=== PATIENT | male | born 1935 | race Asian ===

== ENCOUNTER → 2017-04-27 | Outpatient (CLI) | payer OTHER, MEDICARE ==
--- NOTE | 2017-04-27 13:44 | RADIOLOGY REPORT (SQ) ---
EXAM DESCRIPTION: ANKLE LEFT AP/LATERAL COMPLETED DATE/TIME: 04/27/2017 12:16 pm REASON FOR STUDY: Pain in left ankle and joints of left foot COMPARISON: 12/25/2015. NUMBER OF VIEWS: Three views. TECHNIQUE: AP, lateral, and oblique radiographic images acquired of the left ankle. LIMITATIONS: None. FINDINGS: MINERALIZATION: Normal. BONES: Plantar calcaneal bone spur. Soft tissue swelling over left lateral malleolus. . JOINTS: No effusion. SOFT TISSUES: No soft tissue swelling. No foreign body. OTHER: No other significant finding. IMPRESSION: Soft tissue swelling with ankle effusion. Plantar calcaneal bone spur. TECHNICAL DOCUMENTATION: JOB ID: [id number] [email or web address]- All Rights Reserved
== END ==
LOC: OD 11:53
PROVIDERS: ATTEND Internal Medicine
DX: M25.572 Pain in left ankle and joints of left foot (principal)

== ENCOUNTER 2017-10-17 09:45 | Observation (INO) | payer OTHER, MEDICARE ==
[2017-10-17 11:10] LABS: APPEARANCE,URINE CLEAR; BILIRUBIN,URINE NEGATIVE (NEGATIVE); COLOR,URINE STRAW; GLUCOSE, URINE NEGATIVE (NEGATIVE); KETONES,URINE NEGATIVE (NEGATIVE); LEUKOCYTE ESTERASE,URINE NEGATIVE (NEGATIVE); NITRITE,URINE NEGATIVE (NEGATIVE); PROTEIN,URINE NEGATIVE (NEGATIVE); URINE SPECIFIC GRAVITY 1.006; UROBILINOGEN,URINE NEGATIVE mg/dL (<2.0)
[2017-10-17 11:33] LABS: UR PRO/CREAT RATIO RESULT 0.2 mg/mg (0.0-0.2); URINE CREATININE 60.2 mg/dL (22-328); URINE PROTEIN 12.1 mg/dL (<12)
[2017-10-17 11:49] LABS: HEMATOCRIT 34.2 % (37.9-51.0); HEMOGLOBIN 11.2 g/dL (13.5-17.0); MEAN CORPUSCULAR HEMOGLOBIN 28.6 pg (27.0-33.4); MEAN CORPUSCULAR HGB CONC 32.9 g/dL (32.0-36.0); MEAN CORPUSCULAR VOLUME 87 fl (80-97); PLATELET COUNT 163 10^3/uL (150-450); RED BLOOD COUNT 3.93 10^6/uL (4.35-5.55); RED CELL DISTRIBUTION WIDTH 14.9 % (11.5-14.0); WHITE BLOOD COUNT 5.6 10^3/uL (4.0-10.5)
[2017-10-17 12:23] LABS: ALANINE AMINOTRANSFERASE 31 U/L (21-72); ALBUMIN 3.9 g/dL (3.5-5.0); ALKALINE PHOSPHATASE 50 U/L (38-126); ANION GAP 13 (5-19); ASPARTATE AMINO TRANSFERASE 28 U/L (17-59); BILIRUBIN,DIRECT 0.3 mg/dL (0.0-0.4); BILIRUBIN,TOTAL 0.5 mg/dL (0.2-1.3); BLOOD UREA NITROGEN 29 mg/dL (7-20); CALCIUM 9.1 mg/dL (8.4-10.2); CARBON DIOXIDE 25 mmol/L (22-30); CHLORIDE 103 mmol/L (98-107); GLUCOSE 120 mg/dL (75-110); POTASSIUM 4.9 mmol/L (3.6-5.0); SODIUM 140.7 mmol/L (137-145); TOTAL PROTEIN 6.9 g/dL (6.3-8.2)
[2017-10-17] MEDS: NORMAL SALINE 1000 ML 1,000 ML IV PRN ×2 (12:36→23:03)
--- NOTE | 2017-10-17 15:48 | RADIOLOGY REPORT (SQ) ---
EXAM DESCRIPTION: CHEST 2 VIEWS COMPLETED DATE/TIME: 10/17/2017 3:22 pm REASON FOR STUDY: kidney injury COMPARISON: 12/25/2015 EXAM PARAMETERS: NUMBER OF VIEWS: two views TECHNIQUE: Digital Frontal and Lateral radiographic views of the chest acquired. RADIATION DOSE: NA LIMITATIONS: none FINDINGS: LUNGS AND PLEURA: Hyperinflation of the lungs and some flattening of the diaphragms, stab le findings. Mild chronic prominence of the interstitial markings in the lungs. No acute pulmonary consolidation. No pneumothorax or pleural effusion. No opacities, masses or pneumothorax. No pleura l effusion. MEDIASTINUM AND HILAR STRUCTURES: No masses or contour abnormalities. HEART AND VASCULAR STRUCTURES: Heart normal size. No evidence for failure. BONES: The osseous structures are stable in appearance. Stable compression deformities involving se veral of the thoracic vertebrae. HARDWARE: None in the chest. OTHER: No other significant finding. IMPRESSION: 1 No significant interval changes since the prior examination dated 12/25/2015. Stable chronic changes in the lungs. No acute findings. TECHNICAL DOCUMENTATION: JOB ID: [id number] [employer]- All Rights Reserved Reading location - IP/workstation name: [email or web address]
[2017-10-17 17:20] LABS: FREE T4 (FREE THYROXINE) 1.5 ng/dL (0.78-2.19)
[2017-10-17 17:34] LABS: THYROID STIMULATING HORMONE 0.64 uIU/mL (0.47-4.68)
--- NOTE | 2017-10-17 20:48 | PDOC H&P ---
History of Present Illness Admission Date/PCP: 10/17/17 09:47 TINA QUIROS MD History of Present Illness: PARKER LYNCH is a 82 year old male, Patient was admitted directly from outpatient to the hospital for evaluation of acute kidney injury he had blood work done last Tuesday the creatinine was 1.9, The last serum creatinine was 1.2 , is admitted into the hospital for further evaluation and management Past Medical History Cardiac Medical History: Reports: Atrial Fibrillation, Hyperlipidema, Hypertension Pulmonary Medical History: Reports: Chronic Obstructive Pulmonary Disease (COPD) Neurological Medical History: Reports: Ischemic CVA Endocrine Medical History: Reports: Diabetes Mellitus Type 2 Musculoskeltal Medical History: Reports: Arthritis Hematology: Past Surgical History Past Surgical History: Reports: Vascular Surgery - Bilateral endarterectomy Social History Smoking Status: Former Smoker Number of Years Smokin Frequency of Alcohol Use: None Hx Recreational Drug Use: No Family History Family History: Hypertension, Other Parental Family History Reviewed: Yes Children Family History Reviewed: Yes Sibling(s) Family History Reviewed.: Yes Medication/Allergy Home Medications: Apixaban [Eliquis] 2.5 mg PO Q12 10/17/17 Atorvastatin Calcium [Lipitor 40 mg Tablet] 40 mg PO DAILY 10/17/17 Carvedilol [Coreg 25 mg Tablet] 25 mg PO Q12 10/17/17 Dronedarone HCl [Multaq] 400 mg PO Q12 10/17/17 Hydrochlorothiazide [Hydrodiuril 25 mg Tablet] 25 mg PO DAILY 10/17/17 Levothyroxine Sodium [Synthroid 0.075 mg Tablet] 0.075 mg PO Q6AM 10/17/17 Lisinopril [Prinivil 40 mg Tablet] 40 mg PO Q12 10/17/17 Metformin HCl [Metformin HCl ER] 750 mg PO QHS 10/17/17 Allergies/Adverse Reactions: No Known Allergies Allergy (Verified 12/17/12 08:22) Review of Systems Constitutional: ABSENT: chills, fever(s), headache(s), weight gain, weight loss Eyes: ABSENT: visual disturbances Ears: ABSENT: hearing changes Cardiovascular: ABSENT: chest pain, dyspnea on exertion, edema, orthropnea, palpitations Respiratory: ABSENT: cough, hemoptysis Gastrointestinal: ABSENT: abdominal pain, constipation, diarrhea, hematemesis, hematochezia, nausea, vomiting Genitourinary: ABSENT: dysuria, hematuria Musculoskeletal: ABSENT: joint swelling Integumentary: ABSENT: rash, wounds Neurological: ABSENT: abnormal gait, abnormal speech, confusion, dizziness, focal weakness, syncope Psychiatric: ABSENT: anxiety, depression, homidical ideation, suicidal ideation Endocrine: ABSENT: cold intolerance, heat intolerance, menstrual abnormalities, polydipsia, polyuria Hematologic/Lymphatic: ABSENT: easy bleeding, easy bruising, lymphadenopathy Physical Exam Vital Signs: Temp Pulse Resp BP Pulse Ox 98.5 F 59 L 15 143/51 H 96 10/17/17 19:10 10/17/17 19:10 10/17/17 19:10 10/17/17 19:10 10/17/17 19:10 Intake & Output 10/16/17 10/17/17 10/18/17 06:59 06:59 06:59 Intake Total 2060 Output Total 1100 Balance 960 Weight 54.5 kg General appearance: PRESENT: no acute distress Head exam: PRESENT: atraumatic, normocephalic Eye exam: PRESENT: PERRLA Ear exam: PRESENT: normal external ear exam Respiratory exam: PRESENT: clear to auscultation priscilla Cardiovascular exam: PRESENT: RRR, +S1, +S2 Vascular exam: PRESENT: normal capillary refill GI/Abdominal exam: PRESENT: normal bowel sounds, soft Rectal exam: PRESENT: deferred Neurological exam: PRESENT: alert, CN II-XII grossly intact Psychiatric exam: PRESENT: appropriate affect, normal mood Skin exam: PRESENT: dry, intact, warm Results Laboratory Results: 10/17/17 11:30 10/17/17 11:30 10/17/17 10/17/17 10/17/17 10:50 11:30 11:30 WBC 5.6 RBC 3.93 L Hgb 11.2 L Hct 34.2 L MCV 87 MCH 28.6 MCHC 32.9 RDW 14.9 H Plt Count 163 Sodium 140.7 Potassium 4.9 Chloride 103 Carbon Dioxide 25 Anion Gap 13 BUN 29 H Creatinine 2.01 H Est GFR ( Amer) 39 L Est GFR (Non-Af Amer) 32 L Glucose 120 H Calcium 9.1 Total Bilirubin 0.5 AST 28 ALT 31 Alkaline Phosphatase 50 Total Protein 6.9 Albumin 3.9 TSH Free T4 Urine Color STRAW Urine Appearance CLEAR Urine pH 6.0 Ur Specific [place] 1.006 Urine Protein NEGATIVE Urine Glucose (UA) NEGATIVE Urine Ketones NEGATIVE Urine Blood NEGATIVE Urine Nitrite NEGATIVE Ur Leukocyte Esterase NEGATIVE Urine RBC (Auto) 0 10/17/17 11:30 WBC RBC Hgb Hct MCV MCH MCHC RDW Plt Count Sodium Potassium Chloride Carbon Dioxide Anion Gap BUN Creatinine Est GFR ( Amer) Est GFR (Non-Af Amer) Glucose Calcium Total Bilirubin AST ALT Alkaline Phosphatase Total Protein Albumin TSH 0.64 Free T4 1.50 Urine Color Urine Appearance Urine pH Ur Specific [place] Urine Protein Urine Glucose (UA) Urine Ketones Urine Blood Urine Nitrite Ur Leukocyte Esterase Urine RBC (Auto) Impressions: Chest X-Ray 10/17/17 10:33 IMPRESSION: 1 No significant interval changes since the prior examination dated 12/25/2015. Stable chronic changes in the lungs. No acute findings. Assessment & Plan - Diagnosis (1) Acute kidney injury Is this a current diagnosis for this admission?: Yes Plan: The kidney ultrasound was normal, there is no hydronephrosis, the urinalysis is bland, no protein no cast. This is probably prerenal acute kidney injury. He will be treated with IV fluids will continue to monitor kidney function very closely (2) Type 2 diabetes mellitus Qualifiers: Diabetes mellitus custodial insulin use: without termite control technician use Diabetes mellitus complication status: with neurologic complications Diabetes mellitus complication detail: with polyneuropathy Qualified Code(s): E11.42 - Type 2 diabetes mellitus with diabetic polyneuropathy Is this a current diagnosis for this admission?: Yes
[2017-10-17] MEDS: APIXABAN 2.5 MG TABLET PO SCH (21:11)
[2017-10-17] MEDS: CARVEDILOL 12.5 MG TABLET PO SCH (21:11)
[2017-10-17] MEDS: ATORVASTATIN CALCIUM 40 MG TABLET PO SCH (21:12)
--- NOTE | 2017-10-17 21:13 | RADIOLOGY REPORT (SQ) ---
EXAM DESCRIPTION: U/S RETROPERITON LTD COMPLETED DATE/TIME: 10/17/2017 9:00 pm REASON FOR STUDY: acute kidney failure COMPARISON: 04/05/2014 TECHNIQUE: Dynamic and static grayscale images acquired of the kidneys and bladder and recorded on P ACS. Additional selected color Doppler and spectral images recorded. LIMITATIONS: None. FINDINGS: RIGHT KIDNEY: Normal size, 9.4 cm. Normal echogenicity. No solid or suspicious masses . No hydronephrosis. No calcifications. LEFT KIDNEY: Normal size, 9 cm. 3 cm cortical cyst Normal echogenicity. No solid or suspicious masses. No hydronephrosis. No calcifications. BLADDER: No bladder mass. Bilateral ureteral jets are seen. OTHER FINDINGS: No other significant finding. IMPRESSION: NORMAL RENAL AND BLADDER ULTRASOUND. TECHNICAL DOCUMENTATION: JOB ID: [id number] [employer]- All Rights Reserved Reading location - IP/workstation name: [email or web address]
[2017-10-17 21:38] LABS: ALANINE AMINOTRANSFERASE 37 U/L (21-72); ALKALINE PHOSPHATASE 53 U/L (38-126); ANION GAP 15 (5-19); ASPARTATE AMINO TRANSFERASE 25 U/L (17-59); BILIRUBIN,DIRECT 0.2 mg/dL (0.0-0.4); BILIRUBIN,TOTAL 0.3 mg/dL (0.2-1.3); BLOOD UREA NITROGEN 30 mg/dL (7-20); CALCIUM 8.7 mg/dL (8.4-10.2); CARBON DIOXIDE 22 mmol/L (22-30); CHLORIDE 104 mmol/L (98-107); GLUCOSE 154 mg/dL (75-110); POTASSIUM 4.6 mmol/L (3.6-5.0); SODIUM 140.5 mmol/L (137-145); TOTAL PROTEIN 6.6 g/dL (6.3-8.2)
[2017-10-17] MEDS: DRONEDARONE HYDROCHLORIDE 400 MG TABLET PO SCH (22:39)
[2017-10-18] MEDS: LEVOTHYROXINE SODIUM 0.075 MG TABLET PO SCH (06:00)
[2017-10-18] MEDS: DRONEDARONE HYDROCHLORIDE 400 MG TABLET PO SCH ×2 (09:49→22:51)
[2017-10-18] MEDS: APIXABAN 2.5 MG TABLET PO SCH ×2 (09:49→22:51)
[2017-10-18] MEDS: CARVEDILOL 12.5 MG TABLET PO SCH ×2 (09:50→22:51)
[2017-10-18 10:06] LABS: ALANINE AMINOTRANSFERASE 30 U/L (21-72); ALBUMIN 3.8 g/dL (3.5-5.0); ALKALINE PHOSPHATASE 44 U/L (38-126); ANION GAP 12 (5-19); ASPARTATE AMINO TRANSFERASE 26 U/L (17-59); BILIRUBIN,DIRECT 0.2 mg/dL (0.0-0.4); BILIRUBIN,TOTAL 0.6 mg/dL (0.2-1.3); BLOOD UREA NITROGEN 24 mg/dL (7-20); CALCIUM 9.3 mg/dL (8.4-10.2); CARBON DIOXIDE 25 mmol/L (22-30); CHLORIDE 106 mmol/L (98-107); GLUCOSE 126 mg/dL (75-110); POTASSIUM 4.7 mmol/L (3.6-5.0); SODIUM 142.5 mmol/L (137-145); TOTAL PROTEIN 6.6 g/dL (6.3-8.2)
--- NOTE | 2017-10-18 10:53 | Physician Advisory Note ---
Physician Advisor ProgressNote .: Pursuant to the plan for Flaco Bob, I have reviewed the medical record for this patient. Physician Advisor Statement: Please consider documenting, if you agree: 1. most likely cause of EJ (?the HCTZ/lisinopril?, dehydration?, or ...?) 2. Any clinical reasons pt cannot be safely d/c'd home today - "I am CONCERNED about ".... Status: approp'ly Obs to start. If attending finds pt still concerning today, there is potential for transition to Inpatient status if the severity of illness & intensity of service are high enough. Thanks! CK
[2017-10-18] MEDS: ATORVASTATIN CALCIUM 40 MG TABLET PO SCH (22:51)
[2017-10-19] MEDS: NORMAL SALINE 1000 ML 1,000 ML IV PRN ×2 (04:57→16:48)
[2017-10-19] MEDS: LEVOTHYROXINE SODIUM 0.075 MG TABLET PO SCH (04:59)
[2017-10-19] MEDS: DRONEDARONE HYDROCHLORIDE 400 MG TABLET PO SCH (09:56)
[2017-10-19] MEDS: CARVEDILOL 12.5 MG TABLET PO SCH (09:56)
[2017-10-19] MEDS: APIXABAN 2.5 MG TABLET PO SCH (09:56)
[2017-10-19] MEDS ORDERED: HYDROCHLOROTHIAZIDE 25 MG TABLET PO SCH (13:00)
[2017-10-19] MEDS ORDERED: LISINOPRIL 10 MG TABLET PO SCH (13:00)
[2017-10-19 15:22] LABS: ALANINE AMINOTRANSFERASE 36 U/L (21-72); ALBUMIN 3.4 g/dL (3.5-5.0); ALKALINE PHOSPHATASE 41 U/L (38-126); ANION GAP 14 (5-19); ASPARTATE AMINO TRANSFERASE 29 U/L (17-59); BILIRUBIN,DIRECT 0.2 mg/dL (0.0-0.4); BILIRUBIN,TOTAL 0.4 mg/dL (0.2-1.3); BLOOD UREA NITROGEN 20 mg/dL (7-20); CALCIUM 9.4 mg/dL (8.4-10.2); CARBON DIOXIDE 23 mmol/L (22-30); CHLORIDE 105 mmol/L (98-107); GLUCOSE 116 mg/dL (75-110); POTASSIUM 4.7 mmol/L (3.6-5.0); SODIUM 141.8 mmol/L (137-145); TOTAL PROTEIN 6.3 g/dL (6.3-8.2)
--- NOTE | 2017-10-19 15:47 | PDOC DISCHARGE SUMMARY ---
General - Admit/Disc Date/PCP Admission Date/Primary Care Provider: 10/17/17 09:47 TINA QUIROS MD Discharge Date: 10/19/17 - Discharge Diagnosis (1) Acute kidney injury Is this a current diagnosis for this admission?: Yes (2) Type 2 diabetes mellitus Is this a current diagnosis for this admission?: Yes - Additional Information Home Medications: Apixaban [Eliquis] 2.5 mg PO Q12 10/17/17 Atorvastatin Calcium [Lipitor 40 mg Tablet] 40 mg PO DAILY 10/17/17 Carvedilol [Coreg 25 mg Tablet] 25 mg PO Q12 10/17/17 Dronedarone HCl [Multaq] 400 mg PO Q12 10/17/17 Levothyroxine Sodium [Synthroid 0.075 mg Tablet] 0.075 mg PO Q6AM 10/17/17 Lisinopril [Prinivil 40 mg Tablet] 40 mg PO Q12 10/17/17 Metformin HCl [Metformin HCl ER] 750 mg PO QHS 10/17/17 History of Present Illness History of Present Illness: PARKER LYNCH is a 82 year old male, Patient was admitted directly from outpatient to the hospital for evaluation of acute kidney injury he had blood work done last Tuesday the creatinine was 1.9, The last serum creatinine was 1.2 , is admitted into the hospital for further evaluation and management Hospital Course Hospital Course: Patient was admitted for the management of acute kidney injury, due to prerenal dehydration, he was treated with IV fluid therapy, on admission serum creatinine was 2, the creatinine today is 1.3. Urinalysis was negative kidney ultrasound was normal. Physical Exam Vital Signs: Temp Pulse Resp BP Pulse Ox 97.8 F 59 L 17 177/61 H 94 10/19/17 11:18 10/19/17 11:18 10/19/17 11:18 10/19/17 11:18 10/19/17 11:18 Intake & Output 10/18/17 10/19/17 10/20/17 06:59 06:59 06:59 Intake Total 4120 2275 Output Total 1100 950 Balance 3020 1325 Weight 54.3 kg 54.6 kg General appearance: PRESENT: no acute distress, well-developed, well-nourished Head exam: PRESENT: atraumatic, normocephalic Eye exam: PRESENT: conjunctiva pink, EOMI, PERRLA Ear exam: PRESENT: normal external ear exam Mouth exam: PRESENT: moist, tongue midline Neck exam: PRESENT: full ROM Respiratory exam: PRESENT: clear to auscultation priscilla Cardiovascular exam: PRESENT: RRR, +S1, +S2 Pulses: PRESENT: normal dorsalis pedis pul, +2 pedal pulses bilateral Vascular exam: PRESENT: normal capillary refill GI/Abdominal exam: PRESENT: normal bowel sounds, soft Rectal exam: PRESENT: deferred Neurological exam: PRESENT: alert, awake, oriented to person, oriented to place , oriented to time, oriented to situation, CN II-XII grossly intact Psychiatric exam: PRESENT: appropriate affect, normal mood Skin exam: PRESENT: dry, intact, warm Results Laboratory Results: 10/17/17 11:30 10/19/17 14:43 10/19/17 14:43 Sodium 141.8 Potassium 4.7 Chloride 105 Carbon Dioxide 23 Anion Gap 14 BUN 20 Creatinine 1.37 H Est GFR ( Amer) > 60 Est GFR (Non-Af Amer) 50 L Glucose 116 H Calcium 9.4 Total Bilirubin 0.4 AST 29 ALT 36 Alkaline Phosphatase 41 Total Protein 6.3 Albumin 3.4 L Impressions: Renal Ultrasound 10/17/17 00:00 IMPRESSION: NORMAL RENAL AND BLADDER ULTRASOUND. Chest X-Ray 10/17/17 10:33 IMPRESSION: 1 No significant interval changes since the prior examination dated 12/25/2015. Stable chronic changes in the lungs. No acute findings. Qualifiers - * PATIENT BEING DISCHARGED WITH ANY OF THE FOLLOWING DIAGNOSIS: No
[2017-10-19] MEDS ORDERED: CLONIDINE HCL 0.1 MG TABLET PO ONE (17:00)
[2017-10-19 17:45] VITALS: BP 166/61
== END 2017-10-19 18:30 | disposition home or self-care (01) ==
LOC: EDSTATUS 09:46 → 5 09:47 → UNDODISOB 10-19 12:30
PROVIDERS: ADMIT Internal Medicine; ATTEND Internal Medicine
DX: N17.9 Acute kidney failure, unspecified (principal); E86.0 Dehydration; E11.42 Type 2 diabetes mellitus with diabetic polyneuropathy; E78.5 Hyperlipidemia, unspecified; I10 Essential (primary) hypertension; I48.91 Unspecified atrial fibrillation; Z86.73 Personal history of transient ischemic attack (TIA), and cerebral infarction without residual deficits; Z82.49 Family history of ischemic heart disease and other diseases of the circulatory system; Z87.891 Personal history of nicotine dependence; Z98.890 Other specified postprocedural states; Z79.84 Long term (current) use of oral hypoglycemic drugs; Z79.02 Long term (current) use of antithrombotics/antiplatelets
CPT/HCPCS: 36415 ×3; 84439; 84156; 84443; 82570; 85027; 80076; 80048; 80053 ×3; 81001; 71046; 76775; J3490 ×3; J7030 ×2

== ENCOUNTER 2017-11-23 07:42 | Emergency (ER) | payer OTHER, MEDICARE ==
[2017-11-23] MEDS ORDERED: MECLIZINE HCL 25 MG TABLET PO ONE (08:23)
[2017-11-23] MEDS ORDERED: ONDANSETRON HCL INJ/PF 4 MG/2 ML SDV IV ONE (08:23)
--- NOTE | 2017-11-23 08:23 | ER Document Report ---
ED General - General Chief Complaint: Vomiting Stated Complaint: VOMITING Time Seen by Provider: 11/23/17 08:02 TRAVEL OUTSIDE OF THE [place] IN LAST 30 DAYS: No - HPI Notes: Patient is an 82-year-old male with a history of type 2 diabetes, hypertension, hypercholesterolemia, previous CVA, A. fib (on Eliquis) who presents to the ED complaining of dizziness with associated nausea and vomiting that started this morning. Patient states that he has vomited about 8 times. Patient states that he has chronic shortness of breath and had that again this morning when he ambulated which was not new for him and otherwise does not have sob at this time. Patient states that it is primarily with ambulation. Patient states that his dizziness with nausea and vomiting is what brought him in today. He denies any drug allergies. No other significant cardiopulmonary medical history. He is urinating normally and having normal bowel movements without any melena or hematochezia. Denies any headache, fever, head injury, neck pain , changes in vision/speech/mentation/hearing, URI, sore throat, chest pain, palpitations, syncope, cough, shortness of breath, wheeze, dyspnea, abdominal pain, diarrhea, urinary retention, dysuria, hematuria, back pain, loss of control of bowel or bladder, numbness/tingling, saddle anesthesia, muscle paralysis/weakness, or rash. - Related Data Allergies/Adverse Reactions: No Known Allergies Allergy (Verified 11/23/17 07:43) Past Medical History - Social History Smoking Status: Unknown if Ever Smoked Family History: Hypertension, Other - Past Medical History Cardiac Medical History: Reports: Hx Atrial Fibrillation, Hx Hypercholesterolemia, Hx Hypertension Denies: Hx Heart Attack Pulmonary Medical History: Reports: Hx COPD Denies: Hx Asthma Neurological Medical History: Denies: Hx Cerebrovascular Accident, Hx Seizures Endocrine Medical History: Reports: Hx Diabetes Mellitus Type 2 GI Medical History: Denies: Hx Hepatitis, Hx Hiatal Hernia, Hx Ulcer Musculoskeletal Medical History: Reports Hx Arthritis Infectious Medical History: Denies: Hx Hepatitis Past Surgical History: Reports: Hx Open Heart Surgery - STENT PLACED 2001, Hx Vascular Surgery - Bilateral endarterectomy. Denies: Hx Pacemaker - Immunizations Hx Diphtheria, Pertussis, Tetanus Vaccination: - unk Hx Pneumococcal Vaccination: 12/21/12 Review of Systems - Review of Systems -: Yes All other systems reviewed and negative Physical Exam - Vital signs Vitals: Temp Pulse Resp BP Pulse Ox 97.2 F 56 L 16 204/66 H 99 11/23/17 07:48 11/23/17 07:48 11/23/17 07:48 11/23/17 07:48 11/23/17 07:48 - Notes Notes: PHYSICAL EXAMINATION: GENERAL: Well-appearing, well-nourished and in no acute distress. A&Ox4. Answers questions appropriately. HEAD: Atraumatic, normocephalic. Non-tender. EYES: Pupils equal round and reactive to light, extraocular movements intact, sclera anicteric, conjunctiva are normal. No nystagmus. vis trujillo intact. ENT: EAC clear b/l. TM's intact b/l without erythema, fluid, or perforation. Nares patent and without discharge. oropharynx clear without exudates. No tonsilar hypertrophy or erythema. Moist mucous membranes. No sinus tenderness. NECK: Normal range of motion, supple without lymphadenopathy. No rigidity/ meningismus. No midline tenderness. LUNGS: Breath sounds clear to auscultation bilaterally and equal. No wheezes rales or rhonchi. HEART: Regular rate and rhythm without murmurs, rubs, gallops. ABDOMEN: Soft, nontender, nondistended abdomen. No guarding, no rebound. Normal bowel sounds present. No CVA tenderness bilaterally. Musculoskeletal: Ext b/l: FROM to passive/active. Strength 5+/5. No deficits noted. No bony tenderness of extremities. Extremities: No cyanosis, clubbing, or edema b/l. Peripheral pulses 2+. Capillary refill less than 2 seconds. NEUROLOGICAL: NIH 0. GCS 15. Cranial nerves grossly intact. Normal speech. Normal sensory, motor exams. Reflexes 2+ b/l. LOR's negative. Pronator drift negative. Heel/ward, finger/nose wnl. PSYCH: Normal mood, normal affect. SKIN: Warm, Dry, normal turgor, no rashes or lesions noted. Course - Re-evaluation Re-evalutation: 11/23/17 09:45 Patient states that he is feeling much better and is currently asymptomatic. Pt is developing an appetite at this time. 11/23/17 13:48 Patient is an afebrile, well-hydrated 82-year-old male who presents to the ED with n/v and dizziness unspecified. Vitals are acceptable without any significant tachycardia, tachypnea, or hypoxia. PE is otherwise unremarkable for any focal neurological deficits. NIH 0, GCS 15, cranial nerves grossly intact. Patient is nontoxic-appearing and is tolerating p.o. without any difficulties. Pt is currently asymptomatic. CBC, CMP, EKG/cardiac enzymes 2, chest x-ray, CT of the head are all unremarkable for any acute pathology. Patient was ambulated around the room and maintain oxygen greater than 95% on room air without becoming tachycardic or hypotensive. Patient states that he had no recurrence of his dizziness and would like to go home so he can go eat. Patient does not wish to stay for any observation. Risk and benefit thoroughly reviewed. Patient has a heart score of 4 (2 for age alone), PERC negative. Patient does not have any chest pain, dyspnea, or shortness of breath. Patient' s presentation and symptomatology creates lower suspicion for acute intracranial process, ACS, PE, pneumothorax, pericarditis, dissection, respiratory compromise, severe dehydration, sepsis, meningitis, or other systemic emergent condition at this time. Patient is aware that his condition can change from initial presentation and he needs to monitor symptoms closely and seek medical attention for any acute changes. Pt is feeling better and would like to go home. I will send him home with a prescription for meclizine. Recommend conservative measures for symptoms. Recheck with your PCM in 3-5 days. Consider consult with Cardiology. Return to the ED with any worsening/ concerning symptoms otherwise as reviewed in discharge. Patient is not to hesitate to come in if he has any concerns. Patient is in agreement. - Vital Signs Vital signs: Temp Pulse Resp BP Pulse Ox 97.5 F 56 L 18 135/77 H 99 11/23/17 11:01 11/23/17 07:48 11/23/17 13:22 11/23/17 13:22 11/23/17 13:22 - Laboratory Result Diagrams: 11/23/17 08:45 11/23/17 08:45 Laboratory results interpreted by me: 11/23/17 11/23/17 11/23/17 08:39 08:45 08:45 RBC 4.16 L Hgb 12.3 L Hct 36.6 L RDW 14.1 H BUN 39 H Creatinine 1.85 H Est GFR ( Amer) 43 L Est GFR (Non-Af Amer) 35 L Glucose 138 H POC Glucose 135 H Discharge - Discharge Clinical Impression: Dizziness Nausea and vomiting Qualifiers: Vomiting type: unspecified Vomiting Intractability: non-intractable Qualified Code(s): R11.2 - Nausea with vomiting, unspecified Condition: Stable Disposition: HOME, SELF-CARE Instructions: Antinausea Medication ([facility]), Vomiting ([facility]), Dizziness ([facility]) Additional Instructions: Maintain adequate fluid and food intake Spencer diet ([employer] Bananas, rice, apples, toast, etc Zofran as needed tylenol if needed Monitor for any worsening symptoms Make sure you are staying hydrated enough to urinate and have normal BM's Recheck with your PCM in 3-5 days Monitor Blood pressure and heart rate routinely. Return to the ED with any worsening symptoms and/or development of fever, headache, changes in behavior/mentation/vision/speech, chest pain, palpitations , syncope, shortness of breath, trouble breathing, abdominal pain, n/v/d, blood in stool/urine, loss of control of bowel/bladder, urinary retention, muscle weakness/paralysis, saddle anesthesia, numbness/tingling, or other worsening symptoms that are concerning to you. Prescriptions: Meclizine HCl 25 mg PO TID PRN #15 tablet PRN Reason: Forms: Elevated Blood Pressure Referrals: TINA QUIROS MD [Primary Care Provider] - Follow up in 3-5 days
--- NOTE | 2017-11-23 08:36 | EKG REPORT ---
SEVERITY:- ABNORMAL ECG - SINUS RHYTHM PROBABLE LEFT VENTRICULAR HYPERTROPHY : Confirmed by: Yogi Dow 23-Nov-2017 08:36:04
--- NOTE | 2017-11-23 08:49 | RADIOLOGY REPORT (SQ) ---
EXAM DESCRIPTION: CHEST SINGLE VIEW COMPLETED DATE/TIME: 11/23/2017 8:34 am REASON FOR STUDY: dyspnea COMPARISON: None. EXAM PARAMETERS: NUMBER OF VIEWS: One view. TECHNIQUE: Single frontal radiographic view of the chest acquired. RADIATION DOSE: NA LIMITATIONS: None. FINDINGS: LUNGS AND PLEURA: No opacities, masses or pneumothorax. No pleural effusion. MEDIASTINUM AND HILAR STRUCTURES: No masses. Contour normal. HEART AND VASCULAR STRUCTURES: Heart normal in size. Normal vasculature. BONES: No acute findings. HARDWARE: None in the chest. OTHER: No other significant finding. IMPRESSION: NO ACUTE RADIOGRAPHIC FINDING IN THE CHEST. TECHNICAL DOCUMENTATION: JOB ID: [id number] [employer]- All Rights Reserved Reading location - IP/workstation name: [email or web address]
[2017-11-23] MEDS: NORMAL SALINE 1000 ML 1,000 ML IV PRN ×2 (08:50→09:55)
--- NOTE | 2017-11-23 08:53 | RADIOLOGY REPORT (SQ) ---
EXAM DESCRIPTION: CT HEAD WITHOUT COMPLETED DATE/TIME: 11/23/2017 8:43 am REASON FOR STUDY: dizziness COMPARISON: 09/13/2012 TECHNIQUE: Axial images acquired through the brain without intravenous contrast. Images reviewed wi th bone, brain and subdural windows. Additional sagittal and coronal reconstructions were generated. Images stored on PACS. All CT scanners at this facility use dose modulation, iterative reconstruction, and/or weight based d osing when appropriate to reduce radiation dose to as low as reasonably achievable (ALARA). [facility]: Dose Right [facility]: CareDose [facility]: Dose Right [facility]: Teradose 4D [facility]: Zecco RADIATION DOSE: CT Rad equipment meets quality standard of care and radiation dose reduction techniq ues were employed. CTDIvol: 53.2 mGy. DLP: 1044 mGy-cm.mGy. LIMITATIONS: None. FINDINGS: VENTRICLES: Prominent. CEREBRUM: No masses. No hemorrhage. No midline shift. 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 Are as of low density in the white matter most likely due to chronic micro-vascular ischemic change. No evidence for acute infarction. CEREBELLUM: No masses. No hemorrhage. No alteration of density. No evidence for acute infarction. EXTRAAXIAL SPACES: Age-related involutional change. No fluid collections. No masses. ORBITS AND GLOBE: No intra- or extraconal masses. Normal contour of globe without masses. CALVARIUM: No fracture. PARANASAL SINUSES: No fluid or mucosal thickening. SOFT TISSUES: No mass or hematoma. OTHER: No other significant finding. IMPRESSION: CHRONIC CHANGES OF ATROPHY AND MICROVASCULAR ISCHEMIA. NO ACUTE PROCESS. EVIDENCE OF ACUTE STROKE: NO. TECHNICAL DOCUMENTATION: JOB ID: [id number] Quality ID # [id number]: Final reports with documentation of one or more dose reduction techniques (e.g., Au tomated exposure control, adjustment of the mA and/or kV according to patient size, use of iterative reconstruction technique) 2010 [employer] All Rights Reserved Reading location - IP/workstation name: [email or web address]
[2017-11-23 09:06] LABS: VENOUS BLOOD BASE EXCESS 0.9 mmol/L; VENOUS BLOOD HCO3 27.9 mmol/L (20-32); VENOUS BLOOD PCO2 55.1 mmHg (35-63); VENOUS BLOOD PH 7.32 (7.30-7.42)
[2017-11-23 09:07] LABS: ABSOLUTE BASOPHILS # (AUTO) 0.1 10^3/uL (0.0-0.2); ABSOLUTE EOSINOPHILS # (AUTO) 0.2 10^3/uL (0.0-0.6); ABSOLUTE LYMPHOCYTES (AUTO) 1.1 10^3/uL (0.5-4.7); ABSOLUTE MONOCYTES (AUTO) 0.5 10^3/uL (0.1-1.4); ABSOLUTE NEUT (AUTO) 5.8 10^3/uL (1.7-8.2); BASOPHILS % (AUTO) 1.2 % (0-2); EOSINOPHILS % (AUTO) 2.7 % (0-6); HEMATOCRIT 36.6 % (37.9-51.0); HEMOGLOBIN 12.3 g/dL (13.5-17.0); LYMPHOCYTES % (AUTO) 13.7 % (13-45); MEAN CORPUSCULAR HEMOGLOBIN 29.4 pg (27.0-33.4); MEAN CORPUSCULAR HGB CONC 33.5 g/dL (32.0-36.0); MEAN CORPUSCULAR VOLUME 88 fl (80-97); MONOCYTES % (AUTO) 6.8 % (3-13); PLATELET COUNT 192 10^3/uL (150-450); RED BLOOD COUNT 4.16 10^6/uL (4.35-5.55); RED CELL DISTRIBUTION WIDTH 14.1 % (11.5-14.0); SEGMENTED NEUTROPHILS % (AUTO) 75.6 % (42-78); TOTAL CELLS COUNTED % (AUTO) 100 %; WHITE BLOOD COUNT 7.7 10^3/uL (4.0-10.5)
[2017-11-23 09:19] LABS: ALANINE AMINOTRANSFERASE 29 U/L (21-72); ALBUMIN 4.3 g/dL (3.5-5.0); ALKALINE PHOSPHATASE 57 U/L (38-126); ANION GAP 10 (5-19); ASPARTATE AMINO TRANSFERASE 32 U/L (17-59); BILIRUBIN,DIRECT 0.3 mg/dL (0.0-0.4); BILIRUBIN,TOTAL 0.5 mg/dL (0.2-1.3); BLOOD UREA NITROGEN 39 mg/dL (7-20); CALCIUM 9.3 mg/dL (8.4-10.2); CARBON DIOXIDE 27 mmol/L (22-30); CHLORIDE 105 mmol/L (98-107); GLUCOSE 138 mg/dL (75-110); POTASSIUM 4.6 mmol/L (3.6-5.0); SODIUM 141.6 mmol/L (137-145); TOTAL PROTEIN 7.7 g/dL (6.3-8.2)
[2017-11-23 09:31] LABS: NT PRO BNP 152 pg/mL (<450)
[2017-11-23 09:32] LABS: TROPONIN I < 0.012 ng/mL
[2017-11-23 13:33] VITALS: BP 135/77
--- NOTE | 2017-11-23 15:07 | RADIOLOGY REPORT (SQ) ---
EXAM DESCRIPTION: FOOT RIGHT COMPLETE COMPLETED DATE/TIME: 11/23/2017 2:51 pm REASON FOR STUDY: 5th digit pain s/p injury COMPARISON: None. NUMBER OF VIEWS: Three views. TECHNIQUE: AP, lateral and oblique radiographic images acquired of the right foot. LIMITATIONS: None. FINDINGS: MINERALIZATION: Osteopenia. BONES: Small calcaneal spurs. No fracture or dislocation. JOINTS: No effusions. SOFT TISSUES: No soft tissue swelling. No foreign body. OTHER: No other significant finding. IMPRESSION: Calcaneal spurs. No acute abnormality. TECHNICAL DOCUMENTATION: JOB ID: [id number] [employer]- All Rights Reserved Reading location - IP/workstation name: [email or web address]
== END 2017-11-23 15:30 | disposition home or self-care (01) ==
LOC: ER 07:42
DX: R42 Dizziness and giddiness (principal); R11.2 Nausea with vomiting, unspecified; E11.9 Type 2 diabetes mellitus without complications; I10 Essential (primary) hypertension; I48.91 Unspecified atrial fibrillation; Z79.01 Long term (current) use of anticoagulants; Z86.73 Personal history of transient ischemic attack (TIA), and cerebral infarction without residual deficits
CPT/HCPCS: 36415; 70450; 71045; 80053; 82803; 82962; 83605; 83880; 84484; 85025; 93005; 93010; 96361; 96374; 99285

== ENCOUNTER → 2018-02-28 | Outpatient (CLI) | payer OTHER, MEDICARE ==
--- NOTE | 2018-02-28 11:14 | RADIOLOGY REPORT (SQ) ---
EXAM DESCRIPTION: ANKLE RIGHT AP/LATERAL COMPLETED DATE/TIME: 02/28/2018 11:00 am REASON FOR STUDY: PAIN IN RIGHT ANKLE AND JOINTS OF RIGHT FOOT (M25.571) R22.41 LOCALIZED SWELLING, MASS AND LUMP, RIGHT LOWER LIMB COMPARISON: None. NUMBER OF VIEWS: Three views. TECHNIQUE: AP, lateral, and oblique radiographic images acquired of the right ankle. LIMITATIONS: None. FINDINGS: MINERALIZATION: Normal. BONES: No acute fracture or dislocation. Calcaneal spurs. JOINTS: No effusions. SOFT TISSUES: Soft tissue swelling. Soft tissue vascular calcifications. No foreign body. OTHER: No other significant finding. IMPRESSION: 1. Soft tissue swelling. 2. No acute osseous findings. 3. Calcaneal spurs. TECHNICAL DOCUMENTATION: JOB ID: [id number]- All Rights Reserved Reading location - IP/workstation name: [email or web address]
--- NOTE | 2018-02-28 16:40 | XCELERA REPORT ---
[address] [place] [facility] [address] Lower Extremity Venous Evaluation Procedure: Color flow and duplex imaging of the veins of the left lower extremity as well as the left Common Femoral vein. Right Sided Venous Evaluation Normal vessel filling wall to wall, compression and augmentation as well as Colour flow down to the infrageniculate veins. Left Sided Venous Evaluation The left common femoral vein is fully compressible. Spontaneous and phasic flow is present in the left common femoral vein. Interpretation Summary No duplex evidence of DVT or obstruction in the right lower extremity nor in the left Common Femoral vein. Name: PARKER LYNCH Age: 82 yrs Gender: Male : 1935 Patient Status: Outpatient Patient Location: Study Date: 02/28/2018 11:16 AM Reason For Study: RIGHT LEG PAIN Ordering Physician: TINA QUIROS Performed By: Erika Diaz : TINA QUIROS > Mykel Espino
== END ==
LOC: SP 10:02
PROVIDERS: ATTEND Internal Medicine
DX: R22.41 Localized swelling, mass and lump, right lower limb (principal)
CPT/HCPCS: 93971

== ENCOUNTER → 2018-04-14 | Outpatient (CLI) | payer OTHER, MEDICARE ==
--- NOTE | 2018-04-14 12:08 | RADIOLOGY REPORT (SQ) ---
EXAM DESCRIPTION: ELBOW RT AP/LAT COMPLETED DATE/TIME: 04/14/2018 11:56 am REASON FOR STUDY: PAIN IN RIGHT ELBOW M25.521 PAIN IN RIGHT ELBOW COMPARISON: 04/07/2015 NUMBER OF VIEWS: Two views. TECHNIQUE: AP and lateral radiographic images acquired of the right elbow. LIMITATIONS: None. FINDINGS: MINERALIZATION: Normal. BONES: No acute fracture dislocation. There is soft tissue calcification along the posterior aspect of the olecranon. This is stable in appearance. JOINT: No effusion. SOFT TISSUES: There is soft tissue swelling overlying the olecranon as well. OTHER: No other significant finding. IMPRESSION: Soft tissue swelling. No joint effusion. No fracture. TECHNICAL DOCUMENTATION: JOB ID: [id number] [employer]- All Rights Reserved Reading location - IP/workstation name: [email or web address]
== END ==
LOC: OD 11:25
PROVIDERS: ATTEND Internal Medicine
DX: M25.521 Pain in right elbow (principal); M79.89 Other specified soft tissue disorders

== ENCOUNTER → 2018-09-05 | Outpatient (CLI) | payer MEDICARE, OTHER ==
--- NOTE | 2018-09-05 12:15 | RADIOLOGY REPORT (SQ) ---
EXAM DESCRIPTION: U/S RETROPERITON (RENAL/AORTA) COMPLETED DATE/TIME: 09/05/2018 11:42 am REASON FOR STUDY: N18.3 CHRONIC KIDNEY DISEASE, STAGE 3 (MODERATE) N18.3 CHRONIC KIDNEY DISEASE, ST AGE 3 (MODERATE) COMPARISON: 10/17/2017 TECHNIQUE: Dynamic and static grayscale images acquired of the kidneys and bladder and recorded on P ACS. Additional selected color Doppler and spectral images recorded. LIMITATIONS: None. FINDINGS: RIGHT KIDNEY: Small kidney, 8.6 cm. Normal echogenicity. Small septated cyst in the mid kidney. No solid or suspicious masses. No hydronephrosis. LEFT KIDNEY: Small kidney, 8.4 cm. Normal echogenicity. 2.6 cm upper pole cyst. No suspicious mas ses. No hydronephrosis. BLADDER: No masses. Ureteral jets are not seen. OTHER FINDINGS: No other significant finding. IMPRESSION: Atrophic changes in the kidneys. Normal urinary bladder. TECHNICAL DOCUMENTATION: JOB ID: [id number] [employer]- All Rights Reserved Reading location - IP/workstation name: [email or web address]
== END ==
LOC: RAD 10:58
PROVIDERS: ATTEND Internal Medicine Nephrology
DX: I12.9 Hypertensive chronic kidney disease with stage 1 through stage 4 chronic kidney disease, or unspecified chronic kidney disease (principal); N18.3 Chronic kidney disease, stage 3 (moderate); N28.1 Cyst of kidney, acquired
CPT/HCPCS: 76770

== ENCOUNTER → 2018-09-21 | Outpatient (CLI) | payer MEDICARE, OTHER ==
[2018-09-21 10:33] LABS: ABSOLUTE BASOPHILS # (AUTO) 0.1 10^3/uL (0.0-0.2); ABSOLUTE EOSINOPHILS # (AUTO) 0.2 10^3/uL (0.0-0.6); ABSOLUTE LYMPHOCYTES (AUTO) 0.9 10^3/uL (0.5-4.7); ABSOLUTE MONOCYTES (AUTO) 0.6 10^3/uL (0.1-1.4); ABSOLUTE NEUT (AUTO) 3.5 10^3/uL (1.7-8.2); BASOPHILS % (AUTO) 1.1 % (0-2); EOSINOPHILS % (AUTO) 4.4 % (0-6); HEMATOCRIT 30.9 % (37.9-51.0); HEMOGLOBIN 10.4 g/dL (13.5-17.0); LYMPHOCYTES % (AUTO) 16.5 % (13-45); MEAN CORPUSCULAR HEMOGLOBIN 28.2 pg (27.0-33.4); MEAN CORPUSCULAR HGB CONC 33.5 g/dL (32.0-36.0); MEAN CORPUSCULAR VOLUME 84 fl (80-97); MONOCYTES % (AUTO) 10.9 % (3-13); PLATELET COUNT 141 10^3/uL (150-450); RED BLOOD COUNT 3.68 10^6/uL (4.35-5.55); SEGMENTED NEUTROPHILS % (AUTO) 67.1 % (42-78); TOTAL CELLS COUNTED % (AUTO) 100 %; WHITE BLOOD COUNT 5.3 10^3/uL (4.0-10.5)
[2018-09-21 10:41] LABS: APPEARANCE,URINE CLEAR; BILIRUBIN,URINE NEGATIVE (NEGATIVE); COLOR,URINE YELLOW; GLUCOSE, URINE NEGATIVE (NEGATIVE); KETONES,URINE NEGATIVE (NEGATIVE); LEUKOCYTE ESTERASE,URINE NEGATIVE (NEGATIVE); NITRITE,URINE NEGATIVE (NEGATIVE); PROTEIN,URINE NEGATIVE (NEGATIVE); URINE SPECIFIC GRAVITY 1.011; UROBILINOGEN,URINE NEGATIVE mg/dL (<2.0)
[2018-09-21 11:11] LABS: ALANINE AMINOTRANSFERASE 26 U/L (21-72); ALBUMIN 3.8 g/dL (3.5-5.0); ALKALINE PHOSPHATASE 51 U/L (38-126); ANION GAP 7 (5-19); ASPARTATE AMINO TRANSFERASE 26 U/L (17-59); BILIRUBIN,DIRECT 0.2 mg/dL (0.0-0.4); BILIRUBIN,TOTAL 0.5 mg/dL (0.2-1.3); BLOOD UREA NITROGEN 29 mg/dL (7-20); CALCIUM 8.9 mg/dL (8.4-10.2); CARBON DIOXIDE 32 mmol/L (22-30); CHLORIDE 97 mmol/L (98-107); GLUCOSE 109 mg/dL (75-110); PHOSPHORUS 4.1 mg/dL (2.5-4.5); SODIUM 135.5 mmol/L (137-145); TOTAL PROTEIN 6.8 g/dL (6.3-8.2)
[2018-09-22 15:36] LABS: A/G RATIO 1.1 (0.7-1.7); ALBUMIN 2 3.3 g/dL (2.9-4.4); ALPHA-2-GLOBULIN 2 0.9 g/dL (0.4-1.0); GAMMA GLOBULIN 0.9 g/dL (0.4-1.8); MONOCLONAL SPIKE Not Observed g/dL (Not Observ); PROTEIN TOTAL SERUM 6.3 g/dL (6.0-8.5)
== END ==
LOC: OD 09:47
PROVIDERS: ATTEND Internal Medicine Nephrology
DX: N18.3 Chronic kidney disease, stage 3 (moderate) (principal); I12.9 Hypertensive chronic kidney disease with stage 1 through stage 4 chronic kidney disease, or unspecified chronic kidney disease; D63.1 Anemia in chronic kidney disease; E11.22 Type 2 diabetes mellitus with diabetic chronic kidney disease
CPT/HCPCS: 36415; 80053; 81001; 82728; 83735; 83970; 84100; 84165; 84443; 85025

== ENCOUNTER → 2018-10-15 | Outpatient (CLI) | payer OTHER, MEDICARE ==
--- NOTE | 2018-10-17 14:22 | RADIOLOGY REPORT (SQ) ---
EXAM DESCRIPTION: PET CT SKULL/THIGH COMPLETED DATE/TIME: 10/15/2018 8:44 pm REASON FOR STUDY: (R91.1)SOLITARY PULMONARY NODULE R91.1 SOLITARY PULMONARY NODULE J98.4 OTHER DIS ORDERS OF LUNG COMPARISON: Outside CT chest report 10/06/2018 RADIONUCLIDE AND DOSE: 11.9 mCi F18 FDG The route of agent administration: Intravenous FASTING BLOOD SUGAR: 90 choose 1 CONTRAST TYPE AND DOSE: No CT contrast given. TECHNIQUE: Blood glucose level was verified. Above dose of FDG was injected intravenously. 2-D seg mented attenuation correction images were obtained from the base of the skull to the midthighs. Nonc ontrast CT images were obtained for attenuation correction and fusion with emission images. CT image s were performed without oral or intravenous contrast and are not sensitive for parenchymal lesions. A series of overlapping emission PET images were obtained. Images reviewed and manipulated at [facility] work station by the radiologist. Images stored on PACS. LIMITATIONS: None. FINDINGS: HEAD AND NECK: Metabolically active nodule in the left lower pole thyroid, with SUV of 3. Thyroid ultrasound recommended for correlation. CHEST: Partially solid nodule in the anterior basal segment right lower lobe, axial image 84. This m easures about 1.4 x 0.7 cm in size, with SUV of 0.8. There is trace right pleural fluid without increased pleural metabolic activity. Non metabolic biapi harris pleuroparenchymal scarring is present. Less than 4 mm noncalcified granuloma axial image 69 righ t upper lobe. 5 mm noncalcified granuloma in the superior segment right lower lobe axial image 74 ABDOMEN AND PELVIS: No areas of abnormal metabolic activity in the abdomen or pelvis. Expected physi ologic activity is present in the genitourinary system and bowel. PROXIMAL LOWER EXTREMITIES: No areas of abnormal metabolic activity in the soft tissues of the lower extremities. BONES: No abnormal metabolic activity in the visualized skeleton. ADDITIONAL CT FINDINGS: Heavily calcified carotid bifurcations, aortic valve and coronary arteries. Left renal cortical cysts. OTHER: Liver background SUV 1.9. Blood pool background SUV 1.3 IMPRESSION: Partially solid nodule in the right lower lobe, not significantly metabolically active. Continued CT follow-up as per Fleischner criteria COMMENT: Fleischner Criteria for Ground Glass or sub solid Nodules: >6-8mm part solid single nodule: CT 3-6 mo to confirm persistence, if unchanged solid component remai ns < 6mm annual CT should be performed for 5 yrs. TECHNICAL DOCUMENTATION: JOB ID: [id number] [employer]- All Rights Reserved Reading location - IP/workstation name: [email or web address]
== END ==
LOC: RAD 17:07
PROVIDERS: ATTEND Internal Medicine Pulmonary Disease
DX: R91.1 Solitary pulmonary nodule (principal); J98.4 Other disorders of lung
CPT/HCPCS: 78815; A9552

== ENCOUNTER → 2018-10-26 | Outpatient (CLI) | payer MEDICARE, OTHER ==
[2018-10-26 11:12] LABS: ABSOLUTE BASOPHILS # (AUTO) 0.1 10^3/uL (0.0-0.2); ABSOLUTE EOSINOPHILS # (AUTO) 0.2 10^3/uL (0.0-0.6); ABSOLUTE LYMPHOCYTES (AUTO) 1.1 10^3/uL (0.5-4.7); ABSOLUTE MONOCYTES (AUTO) 0.7 10^3/uL (0.1-1.4); ABSOLUTE NEUT (AUTO) 2.8 10^3/uL (1.7-8.2); BASOPHILS % (AUTO) 1.2 % (0-2); HEMOGLOBIN 10.8 g/dL (13.5-17.0); LYMPHOCYTES % (AUTO) 21.8 % (13-45); MEAN CORPUSCULAR HEMOGLOBIN 28.8 pg (27.0-33.4); MEAN CORPUSCULAR HGB CONC 33.7 g/dL (32.0-36.0); MEAN CORPUSCULAR VOLUME 86 fl (80-97); MONOCYTES % (AUTO) 13.6 % (3-13); PLATELET COUNT 158 10^3/uL (150-450); RED BLOOD COUNT 3.74 10^6/uL (4.35-5.55); RED CELL DISTRIBUTION WIDTH 15.3 % (11.5-14.0); SEGMENTED NEUTROPHILS % (AUTO) 58.4 % (42-78); TOTAL CELLS COUNTED % (AUTO) 100 %; WHITE BLOOD COUNT 4.8 10^3/uL (4.0-10.5)
[2018-10-26 11:28] LABS: ALBUMIN 3.9 g/dL (3.5-5.0); ANION GAP 10 (5-19); BLOOD UREA NITROGEN 21 mg/dL (7-20); CALCIUM 9.1 mg/dL (8.4-10.2); CARBON DIOXIDE 25 mmol/L (22-30); CHLORIDE 102 mmol/L (98-107); GLUCOSE 144 mg/dL (75-110); PHOSPHORUS 4.4 mg/dL (2.5-4.5); POTASSIUM 4.6 mmol/L (3.6-5.0)
== END ==
LOC: OD 09:51
PROVIDERS: ATTEND Internal Medicine Nephrology
DX: E11.22 Type 2 diabetes mellitus with diabetic chronic kidney disease (principal); I12.9 Hypertensive chronic kidney disease with stage 1 through stage 4 chronic kidney disease, or unspecified chronic kidney disease; N18.4 Chronic kidney disease, stage 4 (severe); D64.9 Anemia, unspecified
CPT/HCPCS: 36415; 80069; 85025

== ENCOUNTER → 2019-01-01 | Outpatient (CLI) | payer OTHER, MEDICARE ==
--- NOTE | 2019-01-01 15:01 | RADIOLOGY REPORT (SQ) ---
EXAM DESCRIPTION: FOOT LEFT 2 VIEWS COMPLETED DATE/TIME: 01/01/2019 1:01 pm REASON FOR STUDY: PAIN IN LEFT FOOT M79.672 PAIN IN LEFT FOOT COMPARISON: None. NUMBER OF VIEWS: Two views. TECHNIQUE: AP and lateral radiographic images acquired of the left foot. LIMITATIONS: None. FINDINGS: MINERALIZATION: Normal. BONES: No acute fracture or dislocation. No worrisome bone lesions. JOINTS: No effusions. SOFT TISSUES: No soft tissue swelling. No foreign body. OTHER: No other significant finding. IMPRESSION: NEGATIVE STUDY OF THE LEFT FOOT. NO RADIOGRAPHIC EVIDENCE OF ACUTE INJURY. TECHNICAL DOCUMENTATION: JOB ID: [id number] [employer]- All Rights Reserved Reading location - IP/workstation name: [email or web address]
== END ==
LOC: OD 12:42
PROVIDERS: ATTEND Internal Medicine
DX: M79.672 Pain in left foot (principal)

== ENCOUNTER → 2019-01-24 | Outpatient (CLI) | payer OTHER, MEDICARE ==
[2019-01-24 13:57] LABS: ABSOLUTE BASOPHILS # (AUTO) 0.1 10^3/uL (0.0-0.2); ABSOLUTE LYMPHOCYTES (AUTO) 0.9 10^3/uL (0.5-4.7); ABSOLUTE MONOCYTES (AUTO) 0.8 10^3/uL (0.1-1.4); ABSOLUTE NEUT (AUTO) 5.6 10^3/uL (1.7-8.2); BASOPHILS % (AUTO) 0.7 % (0-2); EOSINOPHILS % (AUTO) 0.5 % (0-6); HEMATOCRIT 34.2 % (37.9-51.0); HEMOGLOBIN 11.5 g/dL (13.5-17.0); LYMPHOCYTES % (AUTO) 11.9 % (13-45); MEAN CORPUSCULAR HGB CONC 33.7 g/dL (32.0-36.0); MEAN CORPUSCULAR VOLUME 83 fl (80-97); MONOCYTES % (AUTO) 11.1 % (3-13); PLATELET COUNT 191 10^3/uL (150-450); RED BLOOD COUNT 4.12 10^6/uL (4.35-5.55); RED CELL DISTRIBUTION WIDTH 15.4 % (11.5-14.0); SEGMENTED NEUTROPHILS % (AUTO) 75.8 % (42-78); TOTAL CELLS COUNTED % (AUTO) 100 %; WHITE BLOOD COUNT 7.4 10^3/uL (4.0-10.5)
[2019-01-24 14:15] LABS: APPEARANCE,URINE CLEAR; BILIRUBIN,URINE NEGATIVE (NEGATIVE); COLOR,URINE YELLOW; GLUCOSE, URINE NEGATIVE (NEGATIVE); KETONES,URINE NEGATIVE (NEGATIVE); LEUKOCYTE ESTERASE,URINE NEGATIVE (NEGATIVE); NITRITE,URINE NEGATIVE (NEGATIVE); PROTEIN,URINE 30 mg/dL (NEGATIVE); URINE SPECIFIC GRAVITY 1.016; UROBILINOGEN,URINE NEGATIVE mg/dL (<2.0)
[2019-01-24 14:19] LABS: ALBUMIN 3.8 g/dL (3.5-5.0); ANION GAP 9 (5-19); BLOOD UREA NITROGEN 18 mg/dL (7-20); CALCIUM 9.6 mg/dL (8.4-10.2); CARBON DIOXIDE 31 mmol/L (22-30); CHLORIDE 101 mmol/L (98-107); GLUCOSE 175 mg/dL (75-110); PHOSPHORUS 4.3 mg/dL (2.5-4.5); POTASSIUM 4.5 mmol/L (3.6-5.0)
[2019-01-25 12:36] LABS: CREATININE URINE 124.7 mg/dL (Not Estab.); MICROALBUMIN URINE 90.7 ug/mL (Not Estab.)
== END ==
LOC: OD 13:27
PROVIDERS: ATTEND Internal Medicine Nephrology
DX: N17.9 Acute kidney failure, unspecified (principal); I12.9 Hypertensive chronic kidney disease with stage 1 through stage 4 chronic kidney disease, or unspecified chronic kidney disease; N18.3 Chronic kidney disease, stage 3 (moderate); E11.22 Type 2 diabetes mellitus with diabetic chronic kidney disease; D63.1 Anemia in chronic kidney disease; E87.1 Hypo-osmolality and hyponatremia
CPT/HCPCS: 36415; 80069; 81001; 82043; 82306; 82570; 83970; 85025

== ENCOUNTER → 2019-01-27 | Outpatient (CLI) | payer OTHER, MEDICARE ==
[2019-01-27 09:41] LABS: ABSOLUTE BASOPHILS # (AUTO) 0.1 10^3/uL (0.0-0.2); ABSOLUTE EOSINOPHILS # (AUTO) 0.2 10^3/uL (0.0-0.6); ABSOLUTE LYMPHOCYTES (AUTO) 1.3 10^3/uL (0.5-4.7); ABSOLUTE MONOCYTES (AUTO) 0.8 10^3/uL (0.1-1.4); BASOPHILS % (AUTO) 1.3 % (0-2); EOSINOPHILS % (AUTO) 2.5 % (0-6); HEMATOCRIT 36.3 % (37.9-51.0); HEMOGLOBIN 11.9 g/dL (13.5-17.0); LYMPHOCYTES % (AUTO) 20.3 % (13-45); MEAN CORPUSCULAR HEMOGLOBIN 27.5 pg (27.0-33.4); MEAN CORPUSCULAR HGB CONC 32.8 g/dL (32.0-36.0); MEAN CORPUSCULAR VOLUME 84 fl (80-97); PLATELET COUNT 226 10^3/uL (150-450); RED BLOOD COUNT 4.32 10^6/uL (4.35-5.55); RED CELL DISTRIBUTION WIDTH 15.9 % (11.5-14.0); SEGMENTED NEUTROPHILS % (AUTO) 62.9 % (42-78); TOTAL CELLS COUNTED % (AUTO) 100 %; WHITE BLOOD COUNT 6.3 10^3/uL (4.0-10.5)
[2019-01-27 09:45] LABS: APPEARANCE,URINE CLEAR; BILIRUBIN,URINE NEGATIVE (NEGATIVE); COLOR,URINE STRAW; GLUCOSE, URINE NEGATIVE (NEGATIVE); KETONES,URINE NEGATIVE (NEGATIVE); LEUKOCYTE ESTERASE,URINE NEGATIVE (NEGATIVE); NITRITE,URINE NEGATIVE (NEGATIVE); PROTEIN,URINE NEGATIVE (NEGATIVE); URINE SPECIFIC GRAVITY 1.009; UROBILINOGEN,URINE NEGATIVE mg/dL (<2.0)
[2019-01-27 09:54] LABS: ALBUMIN 3.8 g/dL (3.5-5.0); ANION GAP 8 (5-19); BLOOD UREA NITROGEN 20 mg/dL (7-20); CALCIUM 9.7 mg/dL (8.4-10.2); CARBON DIOXIDE 33 mmol/L (22-30); CHLORIDE 99 mmol/L (98-107); GLUCOSE 144 mg/dL (75-110); PHOSPHORUS 4.5 mg/dL (2.5-4.5); POTASSIUM 4.3 mmol/L (3.6-5.0)
[2019-01-29 06:36] LABS: CREATININE URINE 50.8 mg/dL (Not Estab.); MICROALBUMIN URINE 49.3 ug/mL (Not Estab.)
== END ==
LOC: OD 08:52
PROVIDERS: ATTEND Internal Medicine Nephrology
DX: N17.9 Acute kidney failure, unspecified (principal); I12.9 Hypertensive chronic kidney disease with stage 1 through stage 4 chronic kidney disease, or unspecified chronic kidney disease; N18.3 Chronic kidney disease, stage 3 (moderate); E11.22 Type 2 diabetes mellitus with diabetic chronic kidney disease; D63.1 Anemia in chronic kidney disease; E87.1 Hypo-osmolality and hyponatremia
CPT/HCPCS: 36415; 80069; 81001; 82043; 82306; 82570; 83970; 85025

== ENCOUNTER → 2019-02-05 | Outpatient (CLI) | payer OTHER, MEDICARE ==
[2019-02-05 10:37] LABS: ALKALINE PHOSPHATASE 56 U/L (38-126); ANION GAP 7 (5-19); ASPARTATE AMINO TRANSFERASE 24 U/L (17-59); BILIRUBIN,DIRECT 0.1 mg/dL (0.0-0.4); BILIRUBIN,TOTAL 0.6 mg/dL (0.2-1.3); BLOOD UREA NITROGEN 19 mg/dL (7-20); CALCIUM 9.6 mg/dL (8.4-10.2); CARBON DIOXIDE 31 mmol/L (22-30); CHLORIDE 100 mmol/L (98-107); GLUCOSE 154 mg/dL (75-110); TOTAL PROTEIN 7.2 g/dL (6.3-8.2)
== END ==
LOC: OD 09:35
PROVIDERS: ATTEND Internal Medicine Cardiovascular Disease
DX: Z79.899 Other long term (current) drug therapy (principal)
CPT/HCPCS: 36415; 80053; 83735

== ENCOUNTER 2019-04-02 11:50 | Inpatient (IN) | payer OTHER, MEDICARE ==
--- NOTE | 2019-04-02 12:10 | ER Document Report ---
ED Medical Screen (RME) - General Chief Complaint: Wrist Injury Stated Complaint: HAND SWELLING/COLD SYMPTOMS Time Seen by Provider: 04/02/19 12:06 Primary Care Provider: FARNAZ MARAVILLA MD [Primary Care Provider] - Follow up as needed TRAVEL OUTSIDE OF THE [place] IN LAST 30 DAYS: No - HPI Notes: 04/02/19 12:09 Patient is an 83-year-old male with a history of hypertension who presents complaining of swelling in his left elbow/olecranon area as well as swelling to the left ulnar wrist with redness associated and pain. Patient is not aware of any new injury. Patient is not sure if this is related, but he did have blood drawn to his antecubital space a week ago. He has not had any redness or swelling to that area specifically. No fever. I have treated and performed a rapid initial assessment of this patient. A comprehensive ED assessment and evaluation of the patient, analysis of test results and completion of medical decision making process will be conducted by additional ED providers. PHYSICAL EXAMINATION: GENERAL: Well-appearing, well-nourished and in no acute distress. A&Ox4. Answers questions appropriately. Left arm: There is noted swelling and erythema to the ulnar wrist as well as mild swelling to the olecranon. N/V intact distal. - Related Data Allergies/Adverse Reactions: No Known Allergies Allergy (Verified 11/23/17 07:43) Past Medical History - Past Medical History Cardiac Medical History: Reports: Hx Atrial Fibrillation, Hx Hypercholesterolemia, Hx Hypertension Denies: Hx Heart Attack Pulmonary Medical History: Reports: Hx COPD Denies: Hx Asthma Neurological Medical History: Denies: Hx Cerebrovascular Accident, Hx Seizures Endocrine Medical History: Reports: Hx Diabetes Mellitus Type 2 Renal/ Medical History: Denies: Hx Peritoneal Dialysis GI Medical History: Denies: Hx Hepatitis, Hx Hiatal Hernia, Hx Ulcer Musculoskeltal Medical History: Reports Hx Arthritis Infectious Medical History: Denies: Hx Hepatitis Past Surgical History: Reports: Hx Cardiac Catheterization - stent placed 2001, Hx Open Heart Surgery - STENT PLACED 2001, Hx Vascular Surgery - Bilateral endarterectomy. Denies: Hx Pacemaker - Immunizations Hx Diphtheria, Pertussis, Tetanus Vaccination: - unk Physical Exam - Vital signs Vitals: Temp Pulse Resp BP Pulse Ox 97.3 F 85 20 181/88 H 98 04/02/19 11:55 04/02/19 11:55 04/02/19 11:55 04/02/19 11:55 04/02/19 11:55 Course - Vital Signs Vital signs: Temp Pulse Resp BP Pulse Ox 97.3 F 85 20 181/88 H 98 04/02/19 11:55 04/02/19 11:55 04/02/19 11:55 04/02/19 11:55 04/02/19 11:55 Doctor's Discharge - Discharge Referrals: FARNAZ MARAVILLA MD [Primary Care Provider] - Follow up as needed
[2019-04-02 12:52] LABS: ABSOLUTE LYMPHOCYTES (AUTO) 0.8 10^3/uL (0.5-4.7); ABSOLUTE MONOCYTES (AUTO) 0.9 10^3/uL (0.1-1.4); BASOPHILS % (AUTO) 0.3 % (0-2); HEMATOCRIT 36.1 % (37.9-51.0); HEMOGLOBIN 11.9 g/dL (13.5-17.0); LYMPHOCYTES % (AUTO) 5.3 % (13-45); MEAN CORPUSCULAR HGB CONC 32.9 g/dL (32.0-36.0); MEAN CORPUSCULAR VOLUME 82 fl (80-97); MONOCYTES % (AUTO) 6.3 % (3-13); PLATELET COUNT 313 10^3/uL (150-450); SEGMENTED NEUTROPHILS % (AUTO) 88.1 % (42-78); TOTAL CELLS COUNTED % (AUTO) 100 %; WHITE BLOOD COUNT 14.8 10^3/uL (4.0-10.5)
--- NOTE | 2019-04-02 13:05 | RADIOLOGY REPORT (SQ) ---
EXAM DESCRIPTION: ELBOW LEFT OVER 2 VIEWS COMPLETED DATE/TIME: 04/02/2019 11:24 am REASON FOR STUDY: swelling/pain. Fell from tree 70 years ago. Pain at the olecranon. Medial wrist pain. COMPARISON: None NUMBER OF VIEWS: Four views. TECHNIQUE: AP, lateral, and both oblique radiographic images acquired of the left elbow. LIMITATIONS: None. FINDINGS: MINERALIZATION: Normal. BONES: There is a curvilinear 3 mm os ossific density along the posterior margin of the olecranon whi ch may represent an acute avulsion injury. No acute displaced fracture. No lytic or blastic bone le willis. JOINT: No joint effusion. No intra-articular loose body. SOFT TISSUES: There is soft tissue swelling over the olecranon. OTHER: No other significant finding. IMPRESSION: 1. Olecranon bursitis. 2. Tiny curvilinear ossific density along the posterior margin of the olecranon may represent an acut e avulsion injury or calcific tendinosis. 3. No acute fracture or dislocation. TECHNICAL DOCUMENTATION: JOB ID: [id number] [employer]- All Rights Reserved Reading location - IP/workstation name: [email or web address]
--- NOTE | 2019-04-02 13:09 | RADIOLOGY REPORT (SQ) ---
EXAM DESCRIPTION: WRIST LEFT 3 VIEWS COMPLETED DATE/TIME: 04/02/2019 11:24 am REASON FOR STUDY: swelling/pain. Injury after fall from tree 70 years ago. No reported recent injur y. COMPARISON: None NUMBER OF VIEWS: Three views. TECHNIQUE: AP, lateral, and oblique radiographic images acquired of the left wrist. LIMITATIONS: None. FINDINGS: MINERALIZATION: Osteopenia. BONES: There is severe ulnar minus variance of approximately 9 mm. Flattening of the normal carpal a rc with chronic subchondral sclerosis and cystic change. There is bony remodeling of the scaphoid valentina ne. Dorsal tilt of the lunate. No acute fracture. SOFT TISSUES: There is dorsal soft tissue swelling. No radiopaque foreign body. OTHER: No other significant finding. IMPRESSION: 1. 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 No evidence of acute fracture or dislocation. 2. Soft tissue swelling. TECHNICAL DOCUMENTATION: JOB ID: [id number] [employer]- All Rights Reserved Reading location - IP/workstation name: [email or web address]
[2019-04-02 13:13] LABS: ALBUMIN 3.7 g/dL (3.5-5.0); ALKALINE PHOSPHATASE 77 U/L (38-126); ANION GAP 11 (5-19); ASPARTATE AMINO TRANSFERASE 22 U/L (17-59); BILIRUBIN,DIRECT 0.3 mg/dL (0.0-0.4); BILIRUBIN,TOTAL 0.6 mg/dL (0.2-1.3); BLOOD UREA NITROGEN 20 mg/dL (7-20); CALCIUM 9.2 mg/dL (8.4-10.2); CARBON DIOXIDE 33 mmol/L (22-30); CHLORIDE 88 mmol/L (98-107); POTASSIUM 4.2 mmol/L (3.6-5.0)
[2019-04-02 13:34] LABS: GLUCOSE 406 mg/dL (75-110)
[2019-04-02] MEDS ORDERED: NORMAL SALINE 1000 ML 1,000 ML IV ONE (13:48)
[2019-04-02] MEDS ORDERED: LIDOCAINE 1% INJ-PF (10 MG/ML) 30 ML SDV INJ ONE (14:27)
[2019-04-02] MEDS ORDERED: CLINDAMYCIN 300 MG/D5W RTU 300 MG/50 ML RTUPB IV ONE (14:27)
--- NOTE | 2019-04-02 14:33 | ER Document Report ---
ED General - General Chief Complaint: Wrist Injury Stated Complaint: HAND SWELLING/COLD SYMPTOMS Time Seen by Provider: 04/02/19 12:06 Notes: Patient is an 83-year-old female who presents emergency department with a chief complaint of pain to his left forearm and left elbow area. Patient denies any injury, but according to the patient's daughter, the patient is working and does housekeeping. According to the patient's daughter, she states that the patient is not well taken care of at home. According to the daughter, the is not giving him his medication he needs. Patient states that his elbow has been sore for the past week and this morning he noticed that he had increased redness to the area. Patient denies any actual trauma that he knows of. He states that he may have hit it a couple of times on the trash can. TRAVEL OUTSIDE OF THE [place] IN LAST 30 DAYS: No - Related Data Allergies/Adverse Reactions: No Known Allergies Allergy (Verified 11/23/17 07:43) Past Medical History - Social History Smoking Status: Former Smoker Family History: Hypertension, Other Patient has suicidal ideation: No Patient has homicidal ideation: No - Past Medical History Cardiac Medical History: Reports: Hx Atrial Fibrillation, Hx Hypercholesterolemia, Hx Hypertension Denies: Hx Heart Attack Pulmonary Medical History: Reports: Hx COPD Denies: Hx Asthma Neurological Medical History: Denies: Hx Cerebrovascular Accident, Hx Seizures Endocrine Medical History: Reports: Hx Diabetes Mellitus Type 2 Renal/ Medical History: Denies: Hx Peritoneal Dialysis GI Medical History: Denies: Hx Hepatitis, Hx Hiatal Hernia, Hx Ulcer Musculoskeletal Medical History: Reports Hx Arthritis Infectious Medical History: Denies: Hx Hepatitis Past Surgical History: Reports: Hx Cardiac Catheterization - stent placed 2001, Hx Open Heart Surgery - STENT PLACED 2001, Hx Vascular Surgery - Bilateral enda rterectomy. Denies: Hx Pacemaker - Immunizations Hx Diphtheria, Pertussis, Tetanus Vaccination: - unk Hx Pneumococcal Vaccination: 12/21/12 Review of Systems - Review of Systems Notes: REVIEW OF SYSTEMS: CONSTITUTIONAL : Denies recent illness. Denies recent unintentional weight loss. Denies fever, chills, or sweats. EENT: Denies eye, ear, throat, or mouth pain, discharge, or symptoms. Denies nasal or sinus congestion. CARDIOVASCULAR: Denies chest pain. RESPIRATORY: Denies shortness of breath, cough, congestion, difficulty breathing, or wheezing. GASTROINTESTINAL: Denies nausea, vomiting, and diarrhea. Denies abdominal pain. Denies constipation. GENITOURINARY: Denies difficulty urinating, burning, blood in urine, urgency or frequency. MUSCULOSKELETAL: See HPI. SKIN: Denies rash, itchiness, or lesions HEMATOLOGIC : Denies easy bruising or bleeding. LYMPHATIC: Denies swollen, painful, enlarged glands. NEUROLOGICAL: Denies no numbness or tingling denies weakness. Denies headache. Denies altered mental status. Denies alteration in speech. PSYCHIATRIC: Denies stress, anxiety, alteration in sleep patterns, or depression. All other systems reviewed and negative. Physical Exam - Vital signs Vitals: Temp Pulse Resp BP Pulse Ox 97.3 F 85 20 181/88 H 98 04/02/19 11:55 04/02/19 11:55 04/02/19 11:55 04/02/19 11:55 04/02/19 11:55 - Notes Notes: PHYSICAL EXAMINATION: GENERAL: Appears well, healthy, well-nourished, no acute distress. HEAD: Normocephalic, atraumatic. EYES: PERRL, conjunctiva normal, all extraocular movements intact, sclera nonicteric ENT: Moist mucous membranes. NECK: Supple, no noticeable swelling, redness, rash. Normal range of motion. LUNGS: Equal breath sounds bilaterally and clear to auscultation. No wheezes rales or rhonchi. CARDIOVASCULAR: S1-S2, regular rate, regular rhythm. Radial pulses 2+, normal. ABDOMEN: Normoactive bowel sounds. Soft, nontender, no guarding, no rebound tenderness, and no masses palpated. EXTREMITIES: Deformity and erythema noted to left distal forearm. Additional erythema noted to left elbow at the olecranon process. NEUROLOGICAL: Moves all extremities upon command. Strength 5/5 in all extremities. PSYCH: Normal mood, normal affect. SKIN: Warm, dry. No rash, lesions, ulcerations noted. Normal skin turgor. Course - Re-evaluation Re-evalutation: Patient has a leukocytosis of 14,800. Hemoglobin and hematocrit are 11.9 and 36.1, which is most likely chronic. Patient glucose is 406. Sodium is 131.6 with a chloride of 88. His creatinine is slightly elevated at 1.36. Suspect patient is dehydrated. He received 1 L of IV fluids. After receiving IV fluids his blood sugar went down to 186. At this time, I am concerned for worsening cellulitis. Due to the patient's daughter stating that the patient's is not giving him his medication on a regular basis, I will call Dr. Pena for admission for IV antibiotics. 04/02/19 16:[address] Pena. Patient will be admitted to the telemetry unit. - Vital Signs Vital signs: Temp Pulse Resp BP Pulse Ox 98.1 F 86 17 179/63 H 91 L 04/03/19 20:46 04/03/19 20:46 04/03/19 20:46 04/03/19 20:46 04/03/19 20:46 - Laboratory Result Diagrams: 04/03/19 02:54 04/03/19 02:54 Laboratory results interpreted by me: 04/02/19 04/02/19 04/02/19 12:33 12:33 16:16 WBC 14.8 H Hgb 11.9 L Hct 36.1 L RDW 18.0 H Lymph % (Auto) 5.3 L Absolute Neuts (auto) 13.0 H Seg Neutrophils % 88.1 H Sodium 131.6 L Chloride 88 L Carbon Dioxide 33 H Creatinine 1.36 H Est GFR (MDRD) Non-Af 50 L Glucose 406 H* POC Glucose 186 H Discharge - Discharge Clinical Impression: Hyperglycemia, Dehydration Diabetes Qualifiers: Diabetes mellitus type: type 2 Diabetes mellitus terminal clerk insulin use: unspecified terminal clerk insulin use status Diabetes mellitus complication status: with skin complications Diabetes mellitus complication detail: with other skin complication Qualified Code(s): E11.628 - Type 2 diabetes mellitus with other skin complications Cellulitis Qualifiers: Site of cellulitis: extremity Site of cellulitis of extremity: upper extremity Laterality: left Qualified Code(s): L03.114 - Cellulitis of left upper limb Condition: Stable Disposition: ADMITTED INPATIENT Admitting Provider: Becky Unit Admitted: Telemetry
[2019-04-02] MEDS ORDERED: VANCOMYCIN HCL 0 MG in DEXTROSE 5%-WATER 250 ML IV NR (18:15)
[2019-04-02] MEDS ORDERED: HYDROMORPHONE HCL INJ/PF 2 MG/ML AMPULE IV PRN (18:17)
[2019-04-02] MEDS ORDERED: ENOXAPARIN SODIUM INJ 30 MG/0.3 ML DISP.SYRIN SUBCUT SCH (18:30)
[2019-04-02] MEDS ORDERED: (PENDING PHARMACY ID) (Metformin Hcl [Metformin Hcl Er] 750 MG) PO SCH (18:30)
[2019-04-02] MEDS ORDERED: VANCOMYCIN HCL 500 MG in DEXTROSE 5%-WATER 100 ML IV SCH (19:00)
[2019-04-02] MEDS ORDERED: ENALAPRILAT DIHYDRATE INJ/PF 2.5 MG/2 ML SDV IV SCH (19:00)
[2019-04-02] MEDS ORDERED: VANCOMYCIN HCL 750 MG in DEXTROSE 5%-WATER 250 ML IV ONE (20:00)
[2019-04-02] MEDS: APIXABAN 2.5 MG TABLET PO SCH (21:13)
[2019-04-02] MEDS: CARVEDILOL 12.5 MG TABLET PO SCH (21:13)
[2019-04-02] MEDS: PIPERACILLIN SODIUM/TAZOBACTAM 3.375 GM in NORMAL SALINE 100 ML IV SCH ×2 (21:13→23:51)
[2019-04-02] MEDS: FERROUS SULFATE 325 MG TABLET PO SCH (21:13)
[2019-04-02] MEDS: LISINOPRIL 10 MG TABLET PO SCH (21:14)
[2019-04-02] MEDS: DRONEDARONE HYDROCHLORIDE 400 MG TABLET PO SCH (21:14)
[2019-04-02] MEDS: ATORVASTATIN CALCIUM 40 MG TABLET PO SCH (21:14)
[2019-04-02] MEDS: ALLOPURINOL 100 MG TABLET PO SCH (21:15)
[2019-04-02] MEDS: CALCITRIOL 0.25 MCG CAPSULE PO SCH (21:15)
[2019-04-02 21:24] LABS: INTERNATIONAL RATION (INR) 1.12; PARTIAL THROMBOPLASTIN TIME 34.1 SEC (23.5-35.8); PROTHROMBIN TIME 14.5 SEC (11.4-15.4)
--- NOTE | 2019-04-02 21:32 | PDOC H&P ---
History of Present Illness Admission Date/PCP: 04/02/19 17:00 TINA QUIROS MD History of Present Illness: PARKER LYNCH is a 83 year old male, He came to the emergency room for eval uation of erythema of the left forearm consistent with cellulitis, Osteomyelitis was suspected MRI of the left wrist without IV contrast was obtained, it showed old fracture deformity of the distal radius with foreshortening allowing 9 mm of positive ulnar variance. There is a complex tear of the triangular fibrocartilage complex and prominent distal radioulnar joint effusion. There is an old nonunited fracture of the ulnar styloid process. There is vague marrow edema in the nonunited fragment and adjacent distal ulna and soft tissue edema along the medial wrist but no cortical erosive changes identified.There is old erosive changes of the distal ulna but they are corticated. There is also marrow edema along the medial triquetrum at the level of the ligamentous attachment. There is bony remodeling of the scaphoid with narrowing of the radioscaphoid articulation and osteochondral lesion along the proximal and mid to distal aspect. There is moderate narrowing of the STT articulations.Patient with underlining comorbid conditions including type 2 diabetes mellitus, chronic kidney disease stage III Past Medical History Cardiac Medical History: Reports: Atrial Fibrillation, Hyperlipidema, Hypertension, Other - Chronic persistent A. fib Pulmonary Medical History: Reports: Chronic Obstructive Pulmonary Disease (COPD) Endocrine Medical History: Reports: Diabetes Mellitus Type 2 Renal/ Medical History: Reports: Other - Chronic kidney disease stage III Musculoskeltal Medical History: Reports: Arthritis Hematology: Past Surgical History Past Surgical History: Reports: Cardiac Catheterization - stent placed 2001, Vascular Surgery - Bilateral endarterectomy Social History Smoking Status: Former Smoker Frequency of Alcohol Use: None Hx Recreational Drug Use: No Family History Family History: Hypertension, Other Parental Family History Reviewed: Yes Children Family History Reviewed: Yes Sibling(s) Family History Reviewed.: Yes Medication/Allergy Home Medications: Allopurinol [Zyloprim 100 mg Tablet] 100 mg PO BID 04/02/19 Apixaban [Eliquis 2.5 mg Tablet] 2.5 mg PO Q12 04/02/19 Atorvastatin Calcium [Lipitor 40 mg Tablet] 40 mg PO QHS 04/02/19 Calcitriol [Rocaltrol 0.25 Mcg Capsule] 0.25 mcg PO DAILY 04/02/19 Carvedilol [Coreg 25 mg Tablet] 25 mg PO Q12 04/02/19 Dronedarone Hydrochloride [Multaq 400 Mg Tablet] 400 mg PO BID 04/02/19 Ferrous Sulfate [Feosol 325 mg Tablet] 325 mg PO DAILY 04/02/19 Levothyroxine Sodium [Synthroid 0.075 mg Tablet] 0.075 mg PO Q6AM 04/02/19 Lisinopril [Prinivil 40 mg Tablet] 40 mg PO BID 04/02/19 Metformin HCl [Metformin HCl ER] 750 mg PO DAILY 04/02/19 Allergies/Adverse Reactions: No Known Allergies Allergy (Verified 11/23/17 07:43) Review of Systems Constitutional: ABSENT: chills, fever(s), headache(s), weight gain, weight loss Eyes: ABSENT: visual disturbances Ears: ABSENT: hearing changes Cardiovascular: ABSENT: chest pain, dyspnea on exertion, edema, orthropnea, palpitations Respiratory: ABSENT: cough, hemoptysis Gastrointestinal: ABSENT: abdominal pain, constipation, diarrhea, hematemesis, hematochezia, nausea, vomiting Genitourinary: ABSENT: dysuria, hematuria Musculoskeletal: PRESENT: deformity, other - There is deformity of the left wrist With erythema of the left forearm, tenderness on palpation Neurological: ABSENT: abnormal gait, abnormal speech, confusion, dizziness, focal weakness, syncope Psychiatric: ABSENT: anxiety, depression, homidical ideation, suicidal ideation Endocrine: ABSENT: cold intolerance, heat intolerance, menstrual abnormalities, polydipsia, polyuria Hematologic/Lymphatic: ABSENT: easy bleeding, easy bruising, lymphadenopathy Physical Exam Vital Signs: Temp Pulse Resp BP Pulse Ox 97.5 F 81 16 200/94 H 97 04/02/19 17:16 04/02/19 17:16 04/02/19 17:16 04/02/19 17:37 04/02/19 17:16 Intake & Output 04/01/19 04/02/19 04/03/19 06:59 06:59 06:59 Intake Total 1050 Balance 1050 Weight 52 kg General appearance: PRESENT: no acute distress Head exam: PRESENT: atraumatic, normocephalic Eye exam: PRESENT: conjunctiva pink, EOMI, PERRLA Neck exam: PRESENT: full ROM Respiratory exam: PRESENT: clear to auscultation priscilla Cardiovascular exam: PRESENT: RRR, +S1, +S2 Pulses: PRESENT: normal dorsalis pedis pul, +2 pedal pulses bilateral Vascular exam: PRESENT: normal capillary refill GI/Abdominal exam: PRESENT: normal bowel sounds, soft Rectal exam: PRESENT: deferred Extremities exam: PRESENT: tenderness, other Neurological exam: PRESENT: alert, CN II-XII grossly intact Skin exam: PRESENT: dry, intact, warm Results Laboratory Results: 04/02/19 12:33 04/02/19 12:33 04/02/19 04/02/19 12:33 12:33 WBC 14.8 H RBC 4.40 Hgb 11.9 L Hct 36.1 L MCV 82 MCH 27.0 MCHC 32.9 RDW 18.0 H Plt Count 313 Seg Neutrophils % 88.1 H Sodium 131.6 L Potassium 4.2 Chloride 88 L Carbon Dioxide 33 H Anion Gap 11 BUN 20 Creatinine 1.36 H Est GFR ( Amer) > 60 Glucose 406 H* Calcium 9.2 Total Bilirubin 0.6 AST 22 Alkaline Phosphatase 77 Total Protein 7.0 Albumin 3.7 Impressions: Elbow X-Ray 04/02/19 12:08 IMPRESSION: 1. Olecranon bursitis. 2. Tiny curvilinear ossific density along the posterior margin of the olecranon may represent an acute avulsion injury or calcific tendinosis. 3. No acute fracture or dislocation. Wrist X-Ray 04/02/19 12:08 IMPRESSION: 1. Chronic degenerative/posttraumatic change of the distal radius and ulna with chronic ulnar minus variance and bony remodeling at the carpal bones. No evidence of acute fracture or dislocation. 2. Soft tissue swelling. Assessment & Plan - Diagnosis (1) Cellulitis of left forearm Is this a current diagnosis for this admission?: Yes Plan: Patient with cellulitis of the left forearm, start vancomycin and Zosyn this will cover potential pathogens including MRSA gram-negative and gram-positive organisms, he has underlining diabetes mellitus and CKD type III, at increased risk of MRSA and gram-negative organisms (2) Type 2 diabetes mellitus Qualifiers: Diabetes mellitus ferry terminal supervisor insulin use: without chcf use Diabetes mellitus complication status: with neurologic complications Diabetes mellitus complication detail: with polyneuropathy Qualified Code(s): E11.42 - Type 2 diabetes mellitus with diabetic polyneuropathy Is this a current diagnosis for this admission?: Yes Plan: continue treatment
[2019-04-02 21:37] LABS: PHOSPHORUS 2.7 mg/dL (2.5-4.5); URIC ACID 5.1 mg/dL (3.5-8.5)
[2019-04-02 21:53] LABS: FREE T4 (FREE THYROXINE) 0.85 ng/dL (0.78-2.19)
[2019-04-02 22:07] LABS: THYROID STIMULATING HORMONE 3.83 uIU/mL (0.47-4.68)
--- NOTE | 2019-04-02 22:26 | RADIOLOGY REPORT (SQ) ---
EXAM DESCRIPTION: MRI OF THE LEFT WRIST WITHOUT IV CONTRAST CLINICAL HISTORY: 83 years Male suspect osteomyelitis of left wrist, hit wrist against doorframe three weeks ago COMPARISON: None TECHNIQUE: Multiplanar MR sequences of the left wrist were obtained without IV contrast. FINDINGS: There is an old fracture deformity of the distal radius with foreshortening allowing 9 mm of positive ulnar variance. There is a complex tear of the triangular fibrocartilage complex and prominent distal radioulnar joint effusion. There is an old nonunited fracture of the ulnar styloid process. There is vague marrow edema in the nonunited fragment and adjacent distal ulna and soft tissue edema along the medial wrist but no cortical erosive changes are identified. Old erosive changes of the distal ulna are seen but they are corticated. There is also marrow edema along the medial triquetrum at the level of ligamentous attachment. There is bony remodeling of the scaphoid with narrowing of the radioscaphoid articulation and an osteochondral lesion along the proximal mid to distal aspect. There is moderate narrowing of the S-T-T articulations. There is an increased scapholunate and capitolunate angle consistent with dorsal intercalated segmental instability (DISI). The visualized tendons are unremarkable. No abnormalities of the carpal tunnel are seen. IMPRESSION: Old fracture deformities of the distal radius and ulna with prominent positive ulnar variance, dorsal intercalated segmental instability, and various arthropathies. There is a prominent distal radioulnar joint effusion. There is nonspecific soft tissue edema along the medial wrist. Vague marrow edema in the distal ulna is most likely due to adjacent chronic inflammatory changes. No definitive osteomyelitis is seen.
[2019-04-02] MEDS ORDERED: GLUCAGON,HUMAN RECOMB 1 MG INJ IM PRN (23:30)
[2019-04-02] MEDS ORDERED: DEXTROSE 40% GEL 15 GM TUBE PO PRN (23:30)
[2019-04-02] MEDS ORDERED: DEXTROSE 50%-WATER SYRINGE 12.5 GM/25 ML DOSE IV PRN (23:30)
[2019-04-02] MEDS ORDERED: DEXTROSE 40% GEL 15 GM TUBE X 2 PO PRN (23:30)
[2019-04-02] MEDS ORDERED: DEXTROSE 50%-WATER SYRINGE 25 GM/50 ML DOSE IV PRN (23:30)
[2019-04-02] MEDS ORDERED: INSULIN LISPRO 100 UNIT/ML 3 ML VIAL ONE (23:35)
[2019-04-02] MEDS ORDERED: INSULIN LISPRO 100 UNIT/ML 3 ML VIAL SUBCUT ONE (23:45)
[2019-04-03 00:22] LABS: APPEARANCE,URINE CLEAR; BILIRUBIN,URINE NEGATIVE (NEGATIVE); COLOR,URINE STRAW; GLUCOSE, URINE NEGATIVE (NEGATIVE); KETONES,URINE NEGATIVE (NEGATIVE); LEUKOCYTE ESTERASE,URINE NEGATIVE (NEGATIVE); NITRITE,URINE NEGATIVE (NEGATIVE); PROTEIN,URINE 30 mg/dL (NEGATIVE); URINE SPECIFIC GRAVITY 1.012; UROBILINOGEN,URINE NEGATIVE mg/dL (<2.0)
[2019-04-03 00:46] LABS: URINE AMPHETAMINES SCREEN NEGATIVE; URINE BARBITURATES SCREEN NEGATIVE; URINE BENZODIAZEPINES SCREEN NEGATIVE; URINE COCAINE SCREEN NEGATIVE; URINE MARIJUANA (THC) SCREEN NEGATIVE; URINE METHADONE SCREEN NEGATIVE; URINE PHENCYCLIDINE SCREEN NEGATIVE
[2019-04-03 03:04] LABS: ABSOLUTE BASOPHILS # (AUTO) 0.1 10^3/uL (0.0-0.2); ABSOLUTE MONOCYTES (AUTO) 1.7 10^3/uL (0.1-1.4); ABSOLUTE NEUT (AUTO) 11.4 10^3/uL (1.7-8.2); BASOPHILS % (AUTO) 0.4 % (0-2); EOSINOPHILS % (AUTO) 0.1 % (0-6); HEMATOCRIT 30.5 % (37.9-51.0); LYMPHOCYTES % (AUTO) 6.9 % (13-45); MEAN CORPUSCULAR HEMOGLOBIN 26.4 pg (27.0-33.4); MEAN CORPUSCULAR HGB CONC 32.9 g/dL (32.0-36.0); MEAN CORPUSCULAR VOLUME 80 fl (80-97); MONOCYTES % (AUTO) 12.2 % (3-13); PLATELET COUNT 249 10^3/uL (150-450); SEGMENTED NEUTROPHILS % (AUTO) 80.4 % (42-78); TOTAL CELLS COUNTED % (AUTO) 100 %; WHITE BLOOD COUNT 14.1 10^3/uL (4.0-10.5)
[2019-04-03 03:34] LABS: ALBUMIN 2.9 g/dL (3.5-5.0); ALKALINE PHOSPHATASE 58 U/L (38-126); ANION GAP 8 (5-19); ASPARTATE AMINO TRANSFERASE 21 U/L (17-59); BILIRUBIN,DIRECT 0.2 mg/dL (0.0-0.4); BILIRUBIN,TOTAL 0.8 mg/dL (0.2-1.3); BLOOD UREA NITROGEN 22 mg/dL (7-20); CALCIUM 8.6 mg/dL (8.4-10.2); CARBON DIOXIDE 28 mmol/L (22-30); CHLORIDE 95 mmol/L (98-107); CHOLESTEROL 94.55 mg/dL (0-200); CREATINE KINASE 53 U/L (55-170); GLUCOSE 174 mg/dL (75-110); TOTAL PROTEIN 5.8 g/dL (6.3-8.2); TRIGLYCERIDES 49 mg/dL (<150)
[2019-04-03 03:49] LABS: DIRECT LDL 45 mg/dL (<100)
[2019-04-03] MEDS: PIPERACILLIN SODIUM/TAZOBACTAM 3.375 GM in NORMAL SALINE 100 ML IV SCH ×4 (06:05→23:37)
[2019-04-03] MEDS: LEVOTHYROXINE SODIUM 0.075 MG TABLET PO SCH (07:36)
[2019-04-03] MEDS: INSULIN LISPRO 100 UNIT/ML 3 ML VIAL SUBCUT SCH ×4 (07:53→21:31)
[2019-04-03] MEDS: CARVEDILOL 12.5 MG TABLET PO SCH ×2 (09:06→21:30)
[2019-04-03] MEDS: LISINOPRIL 10 MG TABLET PO SCH ×2 (09:06→21:30)
[2019-04-03] MEDS: APIXABAN 2.5 MG TABLET PO SCH ×2 (09:06→21:30)
[2019-04-03] MEDS: CALCITRIOL 0.25 MCG CAPSULE PO SCH (09:06)
[2019-04-03] MEDS: ALLOPURINOL 100 MG TABLET PO SCH ×2 (09:07→17:40)
[2019-04-03] MEDS: ACETAMINOPHEN 325 MG TABLET PO PRN (09:07)
[2019-04-03] MEDS: DRONEDARONE HYDROCHLORIDE 400 MG TABLET PO SCH ×2 (09:10→21:58)
--- NOTE | 2019-04-03 12:35 | CDI QUERY ---
CDI Query CDI Review: Dear Provider, (name): To better reflect your patients severity of illness, morbidity, and resource utilization Please specify and document in the Progress Notes and Discharge Summary if you are monitoring / treating / evaluating any of the following conditions: The terms probable, suspected, likely, possible or still to be ruled out may be used if you are unable to determine the exact nature of a condition. Query Clinical indicators HYPONATREMIA? CLINICALLY INSIGNIFICANT FINDING? UNABLE TO DETERMINE? Na+ 131.6 / 130.9 NS @ 120cc / hr Thank you, Clinical Documentation Physician Advisors KHUSHBOO Smith RN, BSN RN Office [phone] Office [phone]
--- NOTE | 2019-04-03 12:41 | CDI QUERY ---
CDI Query CDI Review: Dear Provider, (name): To better reflect your patients severity of illness, morbidity, and resource utilization Please specify and document in the Progress Notes and Discharge Summary if you are monitoring / treating / evaluating any of the following conditions: The terms probable, suspected, likely, possible or still to be ruled out may be used if you are unable to determine the exact nature of a condition. Query Clinical indicators NEW ONSET ATRIAL FIB? CHRONIC, PERSISTENT, PAROXYSMAL? UNABLE TO DETERMINE? HX A FIB ELIQUIS 2.5 mg BID Thank you, Clinical Documentation Physician Advisors KHUSHBOO Smith RN, BSN RN Office [phone] Office [phone]
[2019-04-03] MEDS: FERROUS SULFATE 325 MG TABLET PO SCH (17:40)
--- NOTE | 2019-04-03 20:23 | PDOC PROGRESS REPORT ---
Subjective Progress Note for:: 04/03/19 Subjective:: Patient seen by the bedside, he was admitted yesterday for the management of cellulitis affecting the left forearm, there is slight improvement in the cellulitis is still very tender, we will continue same regimen Reason For Visit: CELLULITIS OF LEFT UPPER EXTREMITY Physical Exam Vital Signs: Temp Pulse Resp BP Pulse Ox 98.2 F 74 18 156/62 H 96 04/03/19 16:03 04/03/19 16:03 04/03/19 16:03 04/03/19 16:03 04/03/19 16:03 Intake & Output 04/02/19 04/03/19 04/04/19 06:59 06:59 06:59 Intake Total 1500 820 Output Total 1000 450 Balance 500 370 Weight 50.9 kg General appearance: PRESENT: no acute distress Eye exam: PRESENT: PERRLA Respiratory exam: PRESENT: clear to auscultation priscilla Cardiovascular exam: PRESENT: +S1, +S2 GI/Abdominal exam: PRESENT: soft Extremities exam: PRESENT: tenderness, other - erythema of the left forearm Neurological exam: PRESENT: alert Results Laboratory Results: 04/03/19 02:54 04/03/19 02:54 04/02/19 04/02/19 04/02/19 20:56 20:56 20:56 WBC RBC Hgb Hct MCV MCH MCHC RDW Plt Count Seg Neutrophils % Sodium Potassium Chloride Carbon Dioxide Anion Gap BUN Creatinine Est GFR ( Amer) Glucose Uric Acid 5.1 Calcium Phosphorus 2.7 Magnesium 2.0 Total Bilirubin AST Alkaline Phosphatase Ammonia < 8.7 L Total Protein Albumin Triglycerides Cholesterol LDL Cholesterol Direct VLDL Cholesterol HDL Cholesterol Amylase 80 Lipase 185.9 TSH 3.83 Free T4 0.85 Urine Color Urine Appearance Urine pH Ur Specific [place] Urine Protein Urine Glucose (UA) Urine Ketones Urine Blood Urine Nitrite Ur Leukocyte Esterase Urine WBC (Auto) Urine RBC (Auto) 04/03/19 04/03/19 04/03/19 00:01 02:54 02:54 WBC 14.1 H RBC 3.80 L Hgb 10.0 L Hct 30.5 L MCV 80 MCH 26.4 L MCHC 32.9 RDW 18.0 H Plt Count 249 Seg Neutrophils % 80.4 H Sodium 130.9 L Potassium 4.0 Chloride 95 L Carbon Dioxide 28 Anion Gap 8 BUN 22 H Creatinine 1.32 H Est GFR ( Amer) > 60 Glucose 174 H Uric Acid Calcium 8.6 Phosphorus Magnesium Total Bilirubin 0.8 AST 21 Alkaline Phosphatase 58 Ammonia Total Protein 5.8 L Albumin 2.9 L Triglycerides 49 Cholesterol 94.55 LDL Cholesterol Direct 45 VLDL Cholesterol 10.0 HDL Cholesterol 46 Amylase Lipase TSH Free T4 Urine Color STRAW Urine Appearance CLEAR Urine pH 8.0 Ur Specific [place] 1.012 Urine Protein 30 H Urine Glucose (UA) NEGATIVE Urine Ketones NEGATIVE Urine Blood MODERATE H Urine Nitrite NEGATIVE Ur Leukocyte Esterase NEGATIVE Urine WBC (Auto) 0 Urine RBC (Auto) 29 04/02/19 04/02/19 04/03/19 20:56 20:56 02:54 Creatine Kinase 57 CK-MB (CK-2) 0.99 0.43 04/03/19 04/03/19 04/03/19 02:54 09:05 09:05 Creatine Kinase 53 L 56 CK-MB (CK-2) 0.49 Impressions: Upper Extremity MRI 04/02/19 00:00 IMPRESSION: Old fracture deformities of the distal radius and ulna with prominent positive ulnar variance, dorsal intercalated segmental instability, and various arthropathies. There is a prominent distal radioulnar joint effusion. There is nonspecific soft tissue edema along the medial wrist. Vague marrow edema in the distal ulna is most likely due to adjacent chronic inflammatory changes. No definitive osteomyelitis is seen. Elbow X-Ray 04/02/19 12:08 IMPRESSION: 1. Olecranon bursitis. 2. Tiny curvilinear ossific density along the posterior margin of the olecranon may represent an acute avulsion injury or calcific tendinosis. 3. No acute fracture or dislocation. Wrist X-Ray 04/02/19 12:08 IMPRESSION: 1. Chronic degenerative/posttraumatic change of the distal radius and ulna with chronic ulnar minus variance and bony remodeling at the carpal bones. No evidence of acute fracture or dislocation. 2. Soft tissue swelling. Assessment & Plan - Diagnosis (1) Cellulitis of left forearm Is this a current diagnosis for this admission?: Yes Plan: continue antibiotics (2) Type 2 diabetes mellitus Qualifiers: Diabetes mellitus termination clerk insulin use: without termination clerk use Diabetes mellitus complication status: with neurologic complications Diabetes mellitus complication detail: with polyneuropathy Qualified Code(s): E11.42 - Type 2 diabetes mellitus with diabetic polyneuropathy Is this a current diagnosis for this admission?: Yes Plan: continue treatment - Time Time Spent with patient: 25-34 minutes Level of Care: TELE
[2019-04-03] MEDS: VANCOMYCIN HCL 500 MG in DEXTROSE 5%-WATER 100 ML IV SCH (20:28)
[2019-04-03] MEDS: ATORVASTATIN CALCIUM 40 MG TABLET PO SCH (21:31)
[2019-04-04] MEDS: PIPERACILLIN SODIUM/TAZOBACTAM 3.375 GM in NORMAL SALINE 100 ML IV SCH ×4 (06:10→23:27)
[2019-04-04] MEDS: LEVOTHYROXINE SODIUM 0.075 MG TABLET PO SCH (06:10)
[2019-04-04 07:27] LABS: ABSOLUTE LYMPHOCYTES (AUTO) 1.1 10^3/uL (0.5-4.7); ABSOLUTE MONOCYTES (AUTO) 1.9 10^3/uL (0.1-1.4); BASOPHILS % (AUTO) 0.3 % (0-2); EOSINOPHILS % (AUTO) 0.3 % (0-6); HEMATOCRIT 30.1 % (37.9-51.0); HEMOGLOBIN 9.9 g/dL (13.5-17.0); LYMPHOCYTES % (AUTO) 7.7 % (13-45); MEAN CORPUSCULAR HEMOGLOBIN 26.6 pg (27.0-33.4); MEAN CORPUSCULAR HGB CONC 32.7 g/dL (32.0-36.0); MEAN CORPUSCULAR VOLUME 81 fl (80-97); MONOCYTES % (AUTO) 13.4 % (3-13); PLATELET COUNT 220 10^3/uL (150-450); RED BLOOD COUNT 3.71 10^6/uL (4.35-5.55); RED CELL DISTRIBUTION WIDTH 18.3 % (11.5-14.0); SEGMENTED NEUTROPHILS % (AUTO) 78.3 % (42-78); TOTAL CELLS COUNTED % (AUTO) 100 %
[2019-04-04] MEDS: INSULIN LISPRO 100 UNIT/ML 3 ML VIAL SUBCUT SCH ×4 (08:44→22:01)
[2019-04-04] MEDS: DRONEDARONE HYDROCHLORIDE 400 MG TABLET PO SCH ×2 (09:44→21:07)
[2019-04-04] MEDS: CALCITRIOL 0.25 MCG CAPSULE PO SCH (09:44)
[2019-04-04] MEDS: LISINOPRIL 10 MG TABLET PO SCH ×2 (09:44→21:07)
[2019-04-04] MEDS: CARVEDILOL 12.5 MG TABLET PO SCH ×2 (09:44→21:06)
[2019-04-04] MEDS: APIXABAN 2.5 MG TABLET PO SCH ×2 (09:44→21:07)
[2019-04-04] MEDS: ALLOPURINOL 100 MG TABLET PO SCH ×2 (09:45→17:09)
[2019-04-04] MEDS: NORMAL SALINE 1000 ML 1,000 ML IV PRN (09:48)
[2019-04-04] MEDS: ACETAMINOPHEN 325 MG TABLET PO PRN ×2 (11:18→21:07)
[2019-04-04] MEDS: FERROUS SULFATE 325 MG TABLET PO SCH (17:09)
[2019-04-04] MEDS: VANCOMYCIN HCL 500 MG in DEXTROSE 5%-WATER 100 ML IV SCH (18:13)
--- NOTE | 2019-04-04 18:26 | PDOC PROGRESS REPORT ---
Subjective Progress Note for:: 04/04/19 Subjective:: Patient seen by the bedside there is improvement in the cellulitis, blood sugar remains high Reason For Visit: CELLULITIS OF LEFT UPPER EXTREMITY Physical Exam Vital Signs: Temp Pulse Resp BP Pulse Ox 101.1 F H 70 19 179/69 H 95 04/04/19 11:09 04/04/19 14:00 04/04/19 11:09 04/04/19 11:09 04/04/19 11:09 Intake & Output 04/03/19 04/04/19 04/05/19 06:59 06:59 06:59 Intake Total 1500 1440 1020 Output Total 1000 1300 200 Balance 500 140 820 Weight 50.9 kg 51.4 kg General appearance: PRESENT: no acute distress Eye exam: PRESENT: PERRLA Respiratory exam: PRESENT: clear to auscultation priscilla Cardiovascular exam: PRESENT: +S1, +S2 GI/Abdominal exam: PRESENT: soft Extremities exam: PRESENT: other - erythema of the left upper extremity Results Laboratory Results: 04/04/19 06:29 04/03/19 02:54 04/04/19 06:29 WBC 14.0 H RBC 3.71 L Hgb 9.9 L Hct 30.1 L MCV 81 MCH 26.6 L MCHC 32.7 RDW 18.3 H Plt Count 220 Seg Neutrophils % 78.3 H 04/02/19 04/02/19 04/03/19 20:56 20:56 02:54 Creatine Kinase 57 CK-MB (CK-2) 0.99 0.43 04/03/19 04/03/19 04/03/19 02:54 09:05 09:05 Creatine Kinase 53 L 56 CK-MB (CK-2) 0.49 Impressions: Upper Extremity MRI 04/02/19 00:00 IMPRESSION: Old fracture deformities of the distal radius and ulna with prominent positive ulnar variance, dorsal intercalated segmental instability, and various arthropathies. There is a prominent distal radioulnar joint effusion. There is nonspecific soft tissue edema along the medial wrist. Vague marrow edema in the distal ulna is most likely due to adjacent chronic inflammatory changes. No definitive osteomyelitis is seen. Elbow X-Ray 04/02/19 12:08 IMPRESSION: 1. Olecranon bursitis. 2. Tiny curvilinear ossific density along the posterior margin of the olecranon may represent an acute avulsion injury or calcific tendinosis. 3. No acute fracture or dislocation. Wrist X-Ray 04/02/19 12:08 IMPRESSION: 1. Chronic degenerative/posttraumatic change of the distal radius and ulna with chronic ulnar minus variance and bony remodeling at the carpal bones. No evidence of acute fracture or dislocation. 2. Soft tissue swelling. Assessment & Plan - Diagnosis (1) Cellulitis of left forearm Is this a current diagnosis for this admission?: Yes Plan: Continue IV antibiotic (2) Type 2 diabetes mellitus Qualifiers: Diabetes mellitus senior living insulin use: without ferry terminal agent use Diabetes mellitus complication status: with neurologic complications Diabetes mellitus complication detail: with polyneuropathy Qualified Code(s): E11.42 - Type 2 diabetes mellitus with diabetic polyneuropathy Is this a current diagnosis for this admission?: Yes - Time Time Spent with patient: 25-34 minutes
[2019-04-04 19:06] LABS: ALBUMIN 2.6 g/dL (3.5-5.0); ALKALINE PHOSPHATASE 66 U/L (38-126); ANION GAP 7 (5-19); ASPARTATE AMINO TRANSFERASE 37 U/L (17-59); BILIRUBIN,DIRECT 0.2 mg/dL (0.0-0.4); BILIRUBIN,TOTAL 0.8 mg/dL (0.2-1.3); BLOOD UREA NITROGEN 18 mg/dL (7-20); CALCIUM 8.3 mg/dL (8.4-10.2); CARBON DIOXIDE 27 mmol/L (22-30); CHLORIDE 99 mmol/L (98-107); GLUCOSE 165 mg/dL (75-110); POTASSIUM 3.7 mmol/L (3.6-5.0); TOTAL PROTEIN 5.5 g/dL (6.3-8.2)
[2019-04-04] MEDS: ATORVASTATIN CALCIUM 40 MG TABLET PO SCH (21:07)
[2019-04-05] MEDS: ACETAMINOPHEN 325 MG TABLET PO PRN ×4 (03:10→23:24)
[2019-04-05] MEDS: NORMAL SALINE 1000 ML 1,000 ML IV PRN ×2 (03:11→09:40)
[2019-04-05 05:22] LABS: ABSOLUTE BASOPHILS # (AUTO) 0.1 10^3/uL (0.0-0.2); ABSOLUTE EOSINOPHILS # (AUTO) 0.1 10^3/uL (0.0-0.6); ABSOLUTE LYMPHOCYTES (AUTO) 0.8 10^3/uL (0.5-4.7); ABSOLUTE MONOCYTES (AUTO) 1.5 10^3/uL (0.1-1.4); BASOPHILS % (AUTO) 0.6 % (0-2); EOSINOPHILS % (AUTO) 0.7 % (0-6); HEMATOCRIT 27.3 % (37.9-51.0); HEMOGLOBIN 9.2 g/dL (13.5-17.0); LYMPHOCYTES % (AUTO) 6.6 % (13-45); MEAN CORPUSCULAR HEMOGLOBIN 27.2 pg (27.0-33.4); MEAN CORPUSCULAR HGB CONC 33.8 g/dL (32.0-36.0); MEAN CORPUSCULAR VOLUME 80 fl (80-97); MONOCYTES % (AUTO) 13.2 % (3-13); PLATELET COUNT 199 10^3/uL (150-450); RED BLOOD COUNT 3.39 10^6/uL (4.35-5.55); RED CELL DISTRIBUTION WIDTH 17.7 % (11.5-14.0); SEGMENTED NEUTROPHILS % (AUTO) 78.9 % (42-78); TOTAL CELLS COUNTED % (AUTO) 100 %; WHITE BLOOD COUNT 11.4 10^3/uL (4.0-10.5)
[2019-04-05] MEDS: LEVOTHYROXINE SODIUM 0.075 MG TABLET PO SCH (05:24)
[2019-04-05] MEDS: PIPERACILLIN SODIUM/TAZOBACTAM 3.375 GM in NORMAL SALINE 100 ML IV SCH ×4 (05:24→23:25)
[2019-04-05 05:42] LABS: ALBUMIN 2.5 g/dL (3.5-5.0); ALKALINE PHOSPHATASE 95 U/L (38-126); ANION GAP 9 (5-19); ASPARTATE AMINO TRANSFERASE 48 U/L (17-59); BILIRUBIN,DIRECT 0.4 mg/dL (0.0-0.4); BILIRUBIN,TOTAL 0.9 mg/dL (0.2-1.3); BLOOD UREA NITROGEN 15 mg/dL (7-20); CALCIUM 8.2 mg/dL (8.4-10.2); CARBON DIOXIDE 24 mmol/L (22-30); CHLORIDE 98 mmol/L (98-107); GLUCOSE 165 mg/dL (75-110); POTASSIUM 3.4 mmol/L (3.6-5.0); TOTAL PROTEIN 5.2 g/dL (6.3-8.2)
[2019-04-05] MEDS: DRONEDARONE HYDROCHLORIDE 400 MG TABLET PO SCH ×2 (09:27→21:30)
[2019-04-05] MEDS: LISINOPRIL 10 MG TABLET PO SCH ×2 (09:27→21:31)
[2019-04-05] MEDS: INSULIN LISPRO 100 UNIT/ML 3 ML VIAL SUBCUT SCH ×4 (09:28→22:41)
[2019-04-05] MEDS: ALLOPURINOL 100 MG TABLET PO SCH ×2 (09:28→17:20)
[2019-04-05] MEDS: CALCITRIOL 0.25 MCG CAPSULE PO SCH (09:28)
[2019-04-05] MEDS: CARVEDILOL 12.5 MG TABLET PO SCH ×2 (09:28→21:31)
[2019-04-05] MEDS: APIXABAN 2.5 MG TABLET PO SCH ×2 (09:28→21:30)
[2019-04-05 14:53] LABS: UR PRO/CREAT RATIO RESULT 1.1 mg/mg (0.0-0.2); URINE PROTEIN 45.8 mg/dL (<12)
[2019-04-05] MEDS: FERROUS SULFATE 325 MG TABLET PO SCH (17:20)
[2019-04-05] MEDS: VANCOMYCIN HCL 500 MG in DEXTROSE 5%-WATER 100 ML IV SCH (18:59)
[2019-04-05 19:32] LABS: VANCOMYCIN,TROUGH < 5.0 ug/mL (5.0-20.0)
--- NOTE | 2019-04-05 19:50 | PDOC PROGRESS REPORT ---
Subjective Progress Note for:: 04/05/19 Subjective:: Patient seen by the bedside, is coughing sputum culture grew gram-negative rods,, chest x-ray will be ordered. The cellulitis continues to improve on present IV antibiotic regimen, white blood cell is also declining suggesting improvement in the overall patient clinical condition Reason For Visit: CELLULITIS OF LEFT UPPER EXTREMITY Physical Exam Vital Signs: Temp Pulse Resp BP Pulse Ox 99.5 F 72 21 H 178/75 H 95 04/05/19 15:46 04/05/19 15:46 04/05/19 15:46 04/05/19 15:46 04/05/19 15:46 Intake & Output 04/04/19 04/05/19 04/06/19 06:59 06:59 06:59 Intake Total 1440 2600 1440 Output Total 1300 1125 Balance 140 1475 1440 Weight 51.4 kg 50.9 kg General appearance: PRESENT: no acute distress Eye exam: PRESENT: PERRLA Respiratory exam: PRESENT: clear to auscultation priscilla Cardiovascular exam: PRESENT: +S1, +S2 GI/Abdominal exam: PRESENT: soft Extremities exam: PRESENT: other - redness of the left upper extremity Neurological exam: PRESENT: alert Results Laboratory Results: 04/05/19 04:23 04/05/19 04:23 04/05/19 04/05/19 04:23 04:23 WBC 11.4 H RBC 3.39 L Hgb 9.2 L Hct 27.3 L MCV 80 MCH 27.2 MCHC 33.8 RDW 17.7 H Plt Count 199 Seg Neutrophils % 78.9 H Sodium 131.2 L Potassium 3.4 L Chloride 98 Carbon Dioxide 24 Anion Gap 9 BUN 15 Creatinine 1.29 H Est GFR ( Amer) > 60 Glucose 165 H Calcium 8.2 L Total Bilirubin 0.9 AST 48 Alkaline Phosphatase 95 Total Protein 5.2 L Albumin 2.5 L 04/02/19 13:15 Sputum Gram Stain - Final 04/03/19 00:01 Clean Catch Midstream Urine Culture - Final NO GROWTH 2 DAYS 04/02/19 04/02/19 04/03/19 20:56 20:56 02:54 Creatine Kinase 57 CK-MB (CK-2) 0.99 0.43 04/03/19 04/03/19 04/03/19 02:54 09:05 09:05 Creatine Kinase 53 L 56 CK-MB (CK-2) 0.49 Impressions: Upper Extremity MRI 04/02/19 00:00 IMPRESSION: Old fracture deformities of the distal radius and ulna with prominent positive ulnar variance, dorsal intercalated segmental instability, and various arthropathies. There is a prominent distal radioulnar joint effusion. There is nonspecific soft tissue edema along the medial wrist. Vague marrow edema in the distal ulna is most likely due to adjacent chronic inflammatory changes. No definitive osteomyelitis is seen. Elbow X-Ray 04/02/19 12:08 IMPRESSION: 1. Olecranon bursitis. 2. Tiny curvilinear ossific density along the posterior margin of the olecranon may represent an acute avulsion injury or calcific tendinosis. 3. No acute fracture or dislocation. Wrist X-Ray 04/02/19 12:08 IMPRESSION: 1. Chronic degenerative/posttraumatic change of the distal radius and ulna with chronic ulnar minus variance and bony remodeling at the carpal bones. No eviden ce of acute fracture or dislocation. 2. Soft tissue swelling. Assessment & Plan - Diagnosis (1) Cellulitis of left forearm Is this a current diagnosis for this admission?: Yes Plan: Continue IV antibiotic (2) Type 2 diabetes mellitus Qualifiers: Diabetes mellitus buttermaker continuous churn insulin use: without assisted use Diabetes mellitus complication status: with neurologic complications Diabetes mellitus complication detail: with polyneuropathy Qualified Code(s): E11.42 - Type 2 diabetes mellitus with diabetic polyneuropathy Is this a current diagnosis for this admission?: Yes - Time Time Spent with patient: 25-34 minutes
[2019-04-05] MEDS: ATORVASTATIN CALCIUM 40 MG TABLET PO SCH (21:30)
--- NOTE | 2019-04-05 21:33 | RADIOLOGY REPORT (SQ) ---
EXAM DESCRIPTION: AP portable chest radiograph CLINICAL HISTORY: 83 years Male, cough COMPARISON: AP portable chest radiograph 11/23/2017 FINDINGS: Lungs: Lung volumes have decreased. This is associated with bibasilar volume loss. Possible small pleural effusions. Apical pleural thickening is noted and more pronounced on today's exam. Mediastinum: Heart size is mildly enlarged. There is vascular calcifications in the aorta. Bones: Osseous structures are stable IMPRESSION: Interval reduction in lung volumes with development of bibasilar volume loss and possible small pleural effusions. This may represent pneumonia or mild edema.
[2019-04-06] MEDS: PIPERACILLIN SODIUM/TAZOBACTAM 3.375 GM in NORMAL SALINE 100 ML IV SCH ×4 (05:55→23:57)
[2019-04-06] MEDS: LEVOTHYROXINE SODIUM 0.075 MG TABLET PO SCH (05:55)
[2019-04-06] MEDS: NORMAL SALINE 1000 ML 1,000 ML IV PRN ×2 (05:56→18:48)
[2019-04-06] MEDS: INSULIN LISPRO 100 UNIT/ML 3 ML VIAL SUBCUT SCH ×4 (08:58→21:47)
[2019-04-06] MEDS: DRONEDARONE HYDROCHLORIDE 400 MG TABLET PO SCH ×2 (09:28→21:46)
[2019-04-06] MEDS: LISINOPRIL 10 MG TABLET PO SCH ×2 (09:28→21:46)
[2019-04-06] MEDS: ACETAMINOPHEN 325 MG TABLET PO PRN ×2 (09:28→18:40)
[2019-04-06] MEDS: ALLOPURINOL 100 MG TABLET PO SCH ×2 (09:29→18:41)
[2019-04-06] MEDS: APIXABAN 2.5 MG TABLET PO SCH ×2 (09:29→21:46)
[2019-04-06] MEDS: CARVEDILOL 12.5 MG TABLET PO SCH ×2 (09:29→21:46)
[2019-04-06] MEDS: CALCITRIOL 0.25 MCG CAPSULE PO SCH (09:29)
[2019-04-06] MEDS: VANCOMYCIN HCL 500 MG in DEXTROSE 5%-WATER 100 ML IV SCH ×2 (09:35→21:44)
[2019-04-06] MEDS: HYDROMORPHONE HCL INJ/PF 2 MG/ML AMPULE IV PRN ×2 (13:43→23:58)
[2019-04-06] MEDS: FERROUS SULFATE 325 MG TABLET PO SCH (18:41)
--- NOTE | 2019-04-06 20:03 | PDOC PROGRESS REPORT ---
Subjective Progress Note for:: 04/06/19 Subjective:: Patient with Pseudomonas pneumonia, the sputum culture grew 4+ Pseudomonas sensitive to Zosyn, chest x-ray consistent with pneumonia bibasilar pneumonia. Patient cellulitis improved, there is deformity of the left wrist, consultation will be requested from orthopedic Reason For Visit: CELLULITIS OF LEFT UPPER EXTREMITY Physical Exam Vital Signs: Temp Pulse Resp BP Pulse Ox 99.4 F 79 17 184/63 H 93 04/06/19 15:59 04/06/19 15:59 04/06/19 15:59 04/06/19 15:59 04/06/19 15:59 Intake & Output 04/05/19 04/06/19 04/07/19 06:59 06:59 06:59 Intake Total 2600 2940 2446 Output Total 1125 950 600 Balance 1475 1989 1846 Weight 50.9 kg 53.6 kg General appearance: PRESENT: no acute distress Eye exam: PRESENT: PERRLA Respiratory exam: PRESENT: clear to auscultation priscilla Cardiovascular exam: PRESENT: +S1, +S2 GI/Abdominal exam: PRESENT: soft Neurological exam: PRESENT: alert Results Laboratory Results: 04/05/19 04:23 04/05/19 04:23 04/02/19 13:15 Sputum Gram Stain - Final 04/02/19 13:15 Sputum Sputum Culture - Final Pseudomonas Aeruginosa Reduced Normal Leela 04/02/19 04/02/19 04/03/19 20:56 20:56 02:54 Creatine Kinase 57 CK-MB (CK-2) 0.99 0.43 04/03/19 04/03/19 04/03/19 02:54 09:05 09:05 Creatine Kinase 53 L 56 CK-MB (CK-2) 0.49 Impressions: Upper Extremity MRI 04/02/19 00:00 IMPRESSION: Old fracture deformities of the distal radius and ulna with prominent positive ulnar variance, dorsal intercalated segmental instability, and various arthropathies. There is a prominent distal radioulnar joint effusion. There is nonspecific soft tissue edema along the medial wrist. Vague marrow edema in the distal ulna is most likely due to adjacent chronic inflammatory changes. No definitive osteomyelitis is seen. Elbow X-Ray 04/02/19 12:08 IMPRESSION: 1. Olecranon bursitis. 2. Tiny curvilinear ossific density along the posterior margin of the olecranon may represent an acute avulsion injury or calcific tendinosis. 3. No acute fracture or dislocation. Wrist X-Ray 04/02/19 12:08 IMPRESSION: 1. Chronic degenerative/posttraumatic change of the distal radius and ulna with chronic ulnar minus variance and bony remodeling at the carpal bones. No evidence of acute fracture or dislocation. 2. Soft tissue swelling. Chest X-Ray 04/05/19 00:00 IMPRESSION: Interval reduction in lung volumes with development of bibasilar volume loss and possible small pleural effusions. This may represent pneumonia or mild edema. Assessment & Plan - Diagnosis (1) Cellulitis of left forearm Is this a current diagnosis for this admission?: Yes (2) Type 2 diabetes mellitus Qualifiers: Diabetes mellitus half-way insulin use: without termite exterminator use Diabetes mellitus complication status: with neurologic complications Diabetes mellitus complication detail: with polyneuropathy Qualified Code(s): E11.42 - Type 2 diabetes mellitus with diabetic polyneuropathy Is this a current diagnosis for this admission?: Yes (3) Pseudomonas pneumonia Qualifiers: Laterality: unspecified laterality Lung location: lower lobe of lung Qualified Code(s): J15.1 - Pneumonia due to Pseudomonas Is this a current diagnosis for this admission?: Yes Plan: Continue IV antibiotic - Time Time Spent with patient: 25-34 minutes Level of Care: IMCU
[2019-04-06] MEDS: ATORVASTATIN CALCIUM 40 MG TABLET PO SCH (21:46)
[2019-04-07] MEDS: ACETAMINOPHEN 325 MG TABLET PO PRN ×3 (06:12→22:54)
[2019-04-07] MEDS: PIPERACILLIN SODIUM/TAZOBACTAM 3.375 GM in NORMAL SALINE 100 ML IV SCH ×3 (06:12→18:33)
[2019-04-07] MEDS: LEVOTHYROXINE SODIUM 0.075 MG TABLET PO SCH (06:13)
[2019-04-07] MEDS: INSULIN LISPRO 100 UNIT/ML 3 ML VIAL SUBCUT SCH ×4 (09:41→22:53)
[2019-04-07] MEDS: VANCOMYCIN HCL 500 MG in DEXTROSE 5%-WATER 100 ML IV SCH ×2 (09:57→22:52)
[2019-04-07] MEDS: DRONEDARONE HYDROCHLORIDE 400 MG TABLET PO SCH ×2 (10:05→22:52)
[2019-04-07] MEDS: CALCITRIOL 0.25 MCG CAPSULE PO SCH (10:05)
[2019-04-07] MEDS: APIXABAN 2.5 MG TABLET PO SCH ×2 (10:05→22:52)
[2019-04-07] MEDS: ALLOPURINOL 100 MG TABLET PO SCH ×2 (10:05→18:35)
[2019-04-07] MEDS: CARVEDILOL 12.5 MG TABLET PO SCH ×2 (10:05→22:53)
[2019-04-07] MEDS: LISINOPRIL 10 MG TABLET PO SCH ×2 (10:05→22:52)
[2019-04-07] MEDS: NORMAL SALINE 1000 ML 1,000 ML IV PRN (10:12)
--- NOTE | 2019-04-07 17:26 | PDOC PROGRESS REPORT ---
Subjective Progress Note for:: 04/07/19 Subjective:: Patient seen by the bedside, he has inflammatory swelling of the left ankle and foot there is no history of fall or injury, patient has a history of gout, the ESR was more than 100 suggesting inflammation, he has history of diabetes, is given a dose of prednisone unfortunately colchicine as interaction with many drugs patient is presently taking Reason For Visit: CELLULITIS OF LEFT UPPER EXTREMITY Physical Exam Vital Signs: Temp Pulse Resp BP Pulse Ox 99.8 F 86 24 H 166/52 H 93 04/07/19 16:00 04/07/19 16:00 04/07/19 16:00 04/07/19 16:00 04/07/19 16:00 Intake & Output 04/06/19 04/07/19 04/08/19 06:59 06:59 06:59 Intake Total 2940 4168 680 Output Total 950 1025 150 Balance 1989 3143 530 Weight 53.6 kg 54.8 kg General appearance: PRESENT: no acute distress Eye exam: PRESENT: PERRLA Respiratory exam: PRESENT: clear to auscultation priscilla Cardiovascular exam: PRESENT: +S1, +S2 GI/Abdominal exam: PRESENT: soft Musculoskeletal exam: PRESENT: deformity, tenderness, other - Swelling of the left ankle Neurological exam: PRESENT: alert Results Laboratory Results: 04/05/19 04:23 04/05/19 04:23 04/07/19 15:35 C-Reactive Protein 155.6 H 04/02/19 16:33 Blood Blood Culture - Final NO GROWTH IN 5 DAYS 04/02/19 14:41 Blood Blood Culture - Final NO GROWTH IN 5 DAYS 04/02/19 04/02/19 04/03/19 20:56 20:56 02:54 Creatine Kinase 57 CK-MB (CK-2) 0.99 0.43 04/03/19 04/03/19 04/03/19 02:54 09:05 09:05 Creatine Kinase 53 L 56 CK-MB (CK-2) 0.49 Impressions: Upper Extremity MRI 04/02/19 00:00 IMPRESSION: Old fracture deformities of the distal radius and ulna with prominent positive ulnar variance, dorsal intercalated segmental instability, and various arthropathies. There is a prominent distal radioulnar joint effusion. There is nonspecific soft tissue edema along the medial wrist. Vague marrow edema in the distal ulna is most likely due to adjacent chronic inflammatory changes. No definitive osteomyelitis is seen. Elbow X-Ray 04/02/19 12:08 IMPRESSION: 1. Olecranon bursitis. 2. Tiny curvilinear ossific density along the posterior margin of the olecranon may represent an acute avulsion injury or calcific tendinosis. 3. No acute fracture or dislocation. Wrist X-Ray 04/02/19 12:08 IMPRESSION: 1. Chronic degenerative/posttraumatic change of the distal radius and ulna with chronic ulnar minus variance and bony remodeling at the carpal bones. No evidence of acute fracture or dislocation. 2. Soft tissue swelling. Chest X-Ray 04/05/19 00:00 IMPRESSION: Interval reduction in lung volumes with development of bibasilar volume loss and possible small pleural effusions. This may represent pneumonia or mild edema. Assessment & Plan - Diagnosis (1) Cellulitis of left forearm Is this a current diagnosis for this admission?: Yes (2) Type 2 diabetes mellitus Qualifiers: Diabetes mellitus fci insulin use: without intermodal owner operator truck driver use Diabetes mellitus complication status: with neurologic complications Diabetes mellitus complication detail: with polyneuropathy Qualified Code(s): E11.42 - Type 2 diabetes mellitus with diabetic polyneuropathy Is this a current diagnosis for this admission?: Yes (3) Pseudomonas pneumonia Qualifiers: Laterality: unspecified laterality Lung location: lower lobe of lung Qualified Code(s): J15.1 - Pneumonia due to Pseudomonas Is this a current diagnosis for this admission?: Yes Plan: Continue IV antibiotic (4) Swelling of left ankle joint Is this a current diagnosis for this admission?: Yes Plan: This is probably gout, MRI ordered, give prednisone 60 mg x 1 dose, colchicine is preferred but colchicine has interaction with many medication patient is presently taking - Time Time Spent with patient: 35 or more minutes
--- NOTE | 2019-04-07 18:23 | RADIOLOGY REPORT (SQ) ---
EXAM DESCRIPTION: MRI LT LOWER EXTREMITY WITHOUT COMPLETED DATE/TIME: 04/07/2019 4:59 pm REASON FOR STUDY: MRI ,LEFT ANKLE FOR SWELLING OF LEFT ANKLE chest. History of gout. Left ankle p ain, swelling, decreased range of motion and weakness. Unable to stand. COMPARISON: Left foot radiograph, 01/01/2019 TECHNIQUE: Left foot images acquired and stored on PACS. Multiplanar images include fat sensitive s equences as T1, water sensitive sequences as FST2 or STIR, cartilage sensitive sequences as FSPD, and gradient echo sequences. LIMITATIONS: There is moderate motion artifact which limits evaluation on multiple sequences. FINDINGS: JOINT AND BURSAE: There is a small ankle joint effusion. BONE CORTEX AND MARROW: No alteration of signal to suggest marrow replacement. No worrisome bone lesi ons. No occult fracture. There is cystic change at the proximal base of the 2nd digit metatarsal whi ch is consistent with chronic degenerative change. LIGAMENTS: Within the limits of the exam, the ligaments about the ankle appear to be intact with norm al internal signal and appearance. SOFT TISSUES: There is blooming artifact at the dorsal lateral subcutaneous fat, consistent with a fo reign body in the skin. Similar blooming artifact at the plantar surface below the 1st digit metatar casa. OTHER: No other significant finding. IMPRESSION: 1. Small ankle joint effusion. Somewhat limited evaluation due to degree of motion. Within limits o f the exam there is no evidence of bone marrow edema or fracture. No evidence of ligamentous injury. 2. Small foreign bodies in the dorsal and plantar soft tissues. TECHNICAL DOCUMENTATION: JOB ID: [id number] [employer]- All Rights Reserved Reading location - IP/workstation name: [email or web address]
[2019-04-07] MEDS: FERROUS SULFATE 325 MG TABLET PO SCH (18:35)
[2019-04-07] MEDS ORDERED: PREDNISONE 20 MG TABLET PO ONE (19:30)
--- NOTE | 2019-04-07 20:09 | PDOC CONSULTATION ---
Consultation Consult Date: 04/07/19 Attending physician:: TINA QUIROS Provider Consulted: IMANI RENTERIA Consult reason:: Left wrist deformity History of Present Illness Admission Date/PCP: 04/06/19 11:11 TINA QUIROS MD Patient complains of: The patient has a chronic deformity of his left wrist. The patient states that his wrist is getting better. History of Present Illness: PARKER LYNCH is a 83 year old male admitted to the hospitalist service with cellulitis of the left forearm. He has since been treated for Pseudomonas pneumonia. As part of the evaluation for the cellulitis of his left forearm, plain radiographs and an MRI of the left wrist was performed. The MRI did not indicate any suspicions of abscess, deep infection, or osteomyelitis. Radiographs and MRI demonstrated shortening of the distal radius from prior fracture with significant positive ulnar variance. 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 Past Medical History Cardiac Medical History: Reports: Atrial Fibrillation, Hyperlipidema, Hypertension, Other - Chronic persistent A. fib Denies: Myocardial Infarction Pulmonary Medical History: Reports: Chronic Obstructive Pulmonary Disease (COPD) Denies: Asthma Neurological Medical History: Denies: Seizures Endocrine Medical History: Reports: Diabetes Mellitus Type 2 Renal/ Medical History: Reports: Other - Chronic kidney disease stage III GI Medical History: Denies: Hepatitis, Hiatal Hernia Musculoskeltal Medical History: Reports: Arthritis Hematology: Denies: Anemia, Sickle Cell Disease Past Surgical History Past Surgical History: Reports: Cardiac Catheterization - stent placed 2001, Vascular Surgery - Bilateral endarterectomy Denies: Pacemaker Social History Smoking Status: Former Smoker Electronic Cigarette use?: No Frequency of Alcohol Use: None Hx Recreational Drug Use: No Drugs: None Hx Prescription Drug Abuse: No Family History Family History: Hypertension, Other Parental Family History Reviewed: Yes Children Family History Reviewed: No Sibling(s) Family History Reviewed.: No Medication/Allergy Home Medications: Allopurinol [Zyloprim 100 mg Tablet] 100 mg PO BID 04/02/19 Apixaban [Eliquis 2.5 mg Tablet] 2.5 mg PO Q12 04/02/19 Atorvastatin Calcium [Lipitor 40 mg Tablet] 40 mg PO QHS 04/02/19 Calcitriol [Rocaltrol 0.25 Mcg Capsule] 0.25 mcg PO DAILY 04/02/19 Carvedilol [Coreg 25 mg Tablet] 25 mg PO Q12 04/02/19 Dronedarone Hydrochloride [Multaq 400 Mg Tablet] 400 mg PO BID 04/02/19 Ferrous Sulfate [Feosol 325 mg Tablet] 325 mg PO DAILY 04/02/19 Levothyroxine Sodium [Synthroid 0.075 mg Tablet] 0.075 mg PO Q6AM 04/02/19 Lisinopril [Prinivil 40 mg Tablet] 40 mg PO BID 04/02/19 Metformin HCl [Metformin HCl ER] 750 mg PO DAILY 04/02/19 Allergies/Adverse Reactions: No Known Allergies Allergy (Verified 11/23/17 07:43) Review of Systems Constitutional: ABSENT: chills, fever(s), headache(s), weight gain, weight loss Respiratory: ABSENT: cough, hemoptysis Musculoskeletal: ABSENT: joint swelling Physical Exam Vital Signs: Temp Pulse Resp BP Pulse Ox 99.8 F 86 24 H 166/52 H 93 04/07/19 16:00 04/07/19 16:00 04/07/19 16:00 04/07/19 16:00 04/07/19 16:00 Intake & Output 04/06/19 04/07/19 04/08/19 06:59 06:59 06:59 Intake Total 2940 4168 1280 Output Total 950 1025 650 Balance 1989 3143 630 Weight 53.6 kg 54.8 kg General appearance: PRESENT: no acute distress Head exam: PRESENT: atraumatic, normocephalic Respiratory exam: PRESENT: unlabored Cardiovascular exam: PRESENT: RRR. ABSENT: diastolic murmur, rubs, systolic murmur Pulses: PRESENT: normal dorsalis pedis pul GI/Abdominal exam: PRESENT: normal bowel sounds, soft. ABSENT: distended, guarding, mass, organolmegaly, rebound, tenderness Rectal exam: PRESENT: deferred Musculoskeletal exam: PRESENT: other - There is obvious clinical deformity of the left wrist with shortening of the radius and ulnar positive variance. The cellulitis of the extremity is resolving and is no longer visualized. There is no tenderness to palpation of the forearm. The patient demonstrates painless flexion, extension, pronation, and supination of the wrist within an acceptable functional range. 2+ radial and ulnar pulses. Sensation is intact to touch. Results Laboratory Results: 04/05/19 04:23 04/05/19 04:23 04/07/19 04/07/19 15:35 15:35 Uric Acid 1.8 L C-Reactive Protein 155.6 H 04/02/19 16:33 Blood Blood Culture - Final NO GROWTH IN 5 DAYS 04/02/19 14:41 Blood Blood Culture - Final NO GROWTH IN 5 DAYS 04/02/19 04/02/19 04/03/19 20:56 20:56 02:54 Creatine Kinase 57 CK-MB (CK-2) 0.99 0.43 04/03/19 04/03/19 04/03/19 02:54 09:05 09:05 Creatine Kinase 53 L 56 CK-MB (CK-2) 0.49 Impressions: Upper Extremity MRI 04/02/19 00:00 IMPRESSION: Old fracture deformities of the distal radius and ulna with prominent positive ulnar variance, dorsal intercalated segmental instability, and various arthropathies. There is a prominent distal radioulnar joint effusion. There is nonspecific soft tissue edema along the medial wrist. Vague marrow edema in the distal ulna is most likely due to adjacent chronic inflammatory changes. No definitive osteomyelitis is seen. Elbow X-Ray 04/02/19 12:08 IMPRESSION: 1. Olecranon bursitis. 2. Tiny curvilinear ossific density along the posterior margin of the olecranon may represent an acute avulsion injury or calcific tendinosis. 3. No acute fracture or dislocation. Wrist X-Ray 04/02/19 12:08 IMPRESSION: 1. Chronic degenerative/posttraumatic change of the distal radius and ulna with chronic ulnar minus variance and bony remodeling at the carpal bones. No evidence of acute fracture or dislocation. 2. Soft tissue swelling. Chest X-Ray 04/05/19 00:00 IMPRESSION: Interval reduction in lung volumes with development of bibasilar volume loss and possible small pleural effusions. This may represent pneumonia or mild edema. Lower Extremity MRI 04/07/19 00:00 IMPRESSION: 1. Small ankle joint effusion. Somewhat limited evaluation due to degree of motion. Within limits of the exam there is no evidence of bone marrow edema or fracture. No evidence of ligamentous injury. 2. Small foreign bodies in the dorsal and plantar soft tissues. Assessment & Plan - Time Time Spent: 50 to 70 Minutes - Plan Summary Plan Summary: The patient has a chronic deformity of his left wrist due to a prior distal radius fracture with shortening. This has resulted in ulnar positive variance and degenerative changes on the ulnar aspect of the wrist. 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 The patient states that he is typically without significant discomfort as a result of these issues. He states that he was experiencing discomfort associated with the cellulitis of the forearm but that these symptoms have improved as the forearm cellulitis has been treated successfully. I would not recommend any specific treatment for this chronic wrist deformity as the patient states that he is mostly asymptomatic. I have discussed with the patient and his that if he begins to experience significant symptoms there are elective wrist reconstructive surgeries which can be considered. These surgeries would be essentially salvage procedures for osteoarthritis and deformity including wrist fusion and distal ulna excision. I have recommended that they seek such treatments electively should he be symptomatic once he has fully recovered from his infectious processes.
[2019-04-07] MEDS: ATORVASTATIN CALCIUM 40 MG TABLET PO SCH (22:52)
[2019-04-08] MEDS: PIPERACILLIN SODIUM/TAZOBACTAM 3.375 GM in NORMAL SALINE 100 ML IV SCH ×5 (00:22→23:22)
[2019-04-08] MEDS: NORMAL SALINE 1000 ML 1,000 ML IV PRN ×3 (00:23→18:33)
[2019-04-08] MEDS: LEVOTHYROXINE SODIUM 0.075 MG TABLET PO SCH (06:03)
[2019-04-08] MEDS: INSULIN LISPRO 100 UNIT/ML 3 ML VIAL SUBCUT SCH ×4 (08:16→21:42)
[2019-04-08] MEDS: CALCITRIOL 0.25 MCG CAPSULE PO SCH (09:52)
[2019-04-08] MEDS: ALLOPURINOL 100 MG TABLET PO SCH ×2 (09:52→18:23)
[2019-04-08] MEDS: APIXABAN 2.5 MG TABLET PO SCH ×2 (09:52→21:42)
[2019-04-08] MEDS: LISINOPRIL 10 MG TABLET PO SCH ×2 (09:53→21:41)
[2019-04-08] MEDS: CARVEDILOL 12.5 MG TABLET PO SCH ×2 (09:53→21:41)
[2019-04-08] MEDS: DRONEDARONE HYDROCHLORIDE 400 MG TABLET PO SCH ×2 (09:59→21:43)
[2019-04-08 10:30] LABS: VANCOMYCIN,TROUGH 8.2 ug/mL (5.0-20.0)
--- NOTE | 2019-04-08 15:40 | PDOC PROGRESS REPORT ---
Subjective Progress Note for:: 04/08/19 Subjective:: Patient seen at the bedside, he was seen yesterday by surgery regarding the deformed left wrist, there is no new complaints, hopefully discharge in 24 to 48 hours Reason For Visit: CELLULITIS OF LEFT UPPER EXTREMITY Physical Exam Vital Signs: Temp Pulse Resp BP Pulse Ox 97.3 F 67 19 150/58 H 97 04/08/19 11:17 04/08/19 11:17 04/08/19 11:17 04/08/19 11:17 04/08/19 11:17 Intake & Output 04/07/19 04/08/19 04/09/19 06:59 06:59 06:59 Intake Total 4168 2940 1000 Output Total 1025 1525 Balance 3143 1415 1000 Weight 54.8 kg 53.2 kg General appearance: PRESENT: no acute distress Eye exam: PRESENT: PERRLA Respiratory exam: PRESENT: clear to auscultation priscilla Cardiovascular exam: PRESENT: +S1, +S2 GI/Abdominal exam: PRESENT: soft Neurological exam: PRESENT: alert Results Laboratory Results: 04/05/19 04:23 04/05/19 04:23 04/07/19 04/07/19 15:35 15:35 Uric Acid 1.8 L C-Reactive Protein 155.6 H 04/02/19 16:33 Blood Blood Culture - Final NO GROWTH IN 5 DAYS 04/02/19 14:41 Blood Blood Culture - Final NO GROWTH IN 5 DAYS 04/02/19 04/02/19 04/03/19 20:56 20:56 02:54 Creatine Kinase 57 CK-MB (CK-2) 0.99 0.43 04/03/19 04/03/19 04/03/19 02:54 09:05 09:05 Creatine Kinase 53 L 56 CK-MB (CK-2) 0.49 Impressions: Upper Extremity MRI 04/02/19 00:00 IMPRESSION: Old fracture deformities of the distal radius and ulna with prominent positive ulnar variance, dorsal intercalated segmental instability, and various arthropathies. There is a prominent distal radioulnar joint effusion. There is nonspecific soft tissue edema along the medial wrist. Vague marrow edema in the distal ulna is most likely due to adjacent chronic inflammatory changes. No definitive osteomyelitis is seen. Elbow X-Ray 04/02/19 12:08 IMPRESSION: 1. Olecranon bursitis. 2. Tiny curvilinear ossific density along the posterior margin of the olecranon may represent an acute avulsion injury or calcific tendinosis. 3. No acute fracture or dislocation. Wrist X-Ray 04/02/19 12:08 IMPRESSION: 1. Chronic degenerative/posttraumatic change of the distal radius and ulna with chronic ulnar minus variance and bony remodeling at the carpal bones. No evidence of acute fracture or dislocation. 2. Soft tissue swelling. Chest X-Ray 04/05/19 00:00 IMPRESSION: Interval reduction in lung volumes with development of bibasilar volume loss and possible small pleural effusions. This may represent pneumonia or mild edema. Lower Extremity MRI 04/07/19 00:00 IMPRESSION: 1. Small ankle joint effusion. Somewhat limited evaluation due to degree of motion. Within limits of the exam there is no evidence of bone marrow edema or fracture. No evidence of ligamentous injury. 2. Small foreign bodies in the dorsal and plantar soft tissues. Assessment & Plan - Diagnosis (1) Cellulitis of left forearm Is this a current diagnosis for this admission?: Yes (2) Type 2 diabetes mellitus Qualifiers: Diabetes mellitus adjunct faculty for medical terminology insulin use: without adjunct faculty for medical terminology use Diabetes mellitus complication status: with neurologic complications Diabetes mellitus complication detail: with polyneuropathy Qualified Code(s): E11.42 - Type 2 diabetes mellitus with diabetic polyneuropathy Is this a current diagnosis for this admission?: Yes (3) Pseudomonas pneumonia Qualifiers: Laterality: unspecified laterality Lung location: lower lobe of lung Qualified Code(s): J15.1 - Pneumonia due to Pseudomonas Is this a current diagnosis for this admission?: Yes (4) Swelling of left ankle joint Is this a current diagnosis for this admission?: Yes - Time Time Spent with patient: 25-34 minutes - Plan Summary Plan Summary: He had a dose of prednisone yesterday he continues to improve the swelling in the ankle is better
[2019-04-08] MEDS: FERROUS SULFATE 325 MG TABLET PO SCH (18:23)
[2019-04-08] MEDS: ATORVASTATIN CALCIUM 40 MG TABLET PO SCH (21:42)
[2019-04-08] MEDS: ACETAMINOPHEN 325 MG TABLET PO PRN (23:22)
[2019-04-09] MEDS: ACETAMINOPHEN 325 MG TABLET PO PRN ×2 (06:52→15:23)
[2019-04-09] MEDS: LEVOTHYROXINE SODIUM 0.075 MG TABLET PO SCH (06:52)
[2019-04-09] MEDS: PIPERACILLIN SODIUM/TAZOBACTAM 3.375 GM in NORMAL SALINE 100 ML IV SCH ×3 (06:52→17:41)
[2019-04-09] MEDS: INSULIN LISPRO 100 UNIT/ML 3 ML VIAL SUBCUT SCH ×3 (09:52→16:48)
[2019-04-09] MEDS: ALLOPURINOL 100 MG TABLET PO SCH ×2 (09:53→17:40)
[2019-04-09] MEDS: LISINOPRIL 10 MG TABLET PO SCH (09:53)
[2019-04-09] MEDS: CARVEDILOL 12.5 MG TABLET PO SCH (09:53)
[2019-04-09] MEDS: DRONEDARONE HYDROCHLORIDE 400 MG TABLET PO SCH (09:53)
[2019-04-09] MEDS: APIXABAN 2.5 MG TABLET PO SCH (09:54)
[2019-04-09] MEDS: CALCITRIOL 0.25 MCG CAPSULE PO SCH (09:54)
[2019-04-09] MEDS: NORMAL SALINE 1000 ML 1,000 ML IV PRN (09:56)
[2019-04-09 17:35] VITALS: BP 125/78
[2019-04-09] MEDS: FERROUS SULFATE 325 MG TABLET PO SCH (17:40)
[2019-04-09 17:48] LABS: HEMATOCRIT 28.3 % (37.9-51.0); HEMOGLOBIN 9.4 g/dL (13.5-17.0); MEAN CORPUSCULAR HEMOGLOBIN 26.4 pg (27.0-33.4); MEAN CORPUSCULAR HGB CONC 33.3 g/dL (32.0-36.0); MEAN CORPUSCULAR VOLUME 79 fl (80-97); PLATELET COUNT 367 10^3/uL (150-450); RED BLOOD COUNT 3.58 10^6/uL (4.35-5.55); WHITE BLOOD COUNT 15.5 10^3/uL (4.0-10.5)
[2019-04-09 18:00] LABS: ALBUMIN 2.8 g/dL (3.5-5.0); ALKALINE PHOSPHATASE 124 U/L (38-126); ANION GAP 12 (5-19); ASPARTATE AMINO TRANSFERASE 87 U/L (17-59); BILIRUBIN,DIRECT 0.3 mg/dL (0.0-0.4); BILIRUBIN,TOTAL 0.4 mg/dL (0.2-1.3); BLOOD UREA NITROGEN 16 mg/dL (7-20); CALCIUM 8.4 mg/dL (8.4-10.2); CARBON DIOXIDE 22 mmol/L (22-30); CHLORIDE 100 mmol/L (98-107); GLUCOSE 132 mg/dL (75-110); POTASSIUM 3.6 mmol/L (3.6-5.0)
[2019-04-09 18:15] LABS: ABSOLUTE LYMPHOCYTES# (MANUAL) 0.5 10^3/uL (0.5-4.7); ABSOLUTE MONOCYTES # (MANUAL) 0.6 10^3/uL (0.1-1.4); ANISOCYTOSIS 1+; BASOPHILS % (MANUAL) 0 % (0-2); EOSINOPHILS % (MANUAL) 0 % (0-6); HYPOCHROMASIA SLIGHT; LYMPHOCYTES % (MANUAL) 3 % (13-45); MONOCYTES % (MANUAL) 4 % (3-13); SEGMENTED NEUTROPHILS % (MAN) 93 % (42-78); TOTAL CELLS COUNTED 100
[2019-04-09 18:16] LABS: PLATELET COMMENT ADEQUATE
--- NOTE | 2019-04-09 19:49 | PDOC DISCHARGE SUMMARY ---
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 Is this a current diagnosis for this admission?: Yes (4) Type 2 diabetes mellitus Is this a current diagnosis for this admission?: Yes (5) Swelling of left ankle joint Is this a current diagnosis for this admission?: Yes - Additional Information Discharge Diet: As Tolerated Discharge Activity: Activity As Tolerated Referrals: FARNAZ MARAVILLA MD [NO LOCAL MD] - Follow up as needed Home Medications: Allopurinol [Zyloprim 100 mg Tablet] 100 mg PO BID 04/02/19 Apixaban [Eliquis 2.5 mg Tablet] 2.5 mg PO Q12 04/02/19 Atorvastatin Calcium [Lipitor 40 mg Tablet] 40 mg PO QHS 04/02/19 Calcitriol [Rocaltrol 0.25 mcg Capsule] 0.25 mcg PO DAILY 04/02/19 Carvedilol [Coreg 25 mg Tablet] 25 mg PO Q12 04/02/19 Dronedarone Hydrochloride [Multaq 400 mg Tablet] 400 mg PO BID 04/02/19 Ferrous Sulfate [Feosol 325 mg Tablet] 325 mg PO DAILY 04/02/19 Levothyroxine Sodium [Synthroid 0.075 mg Tablet] 0.075 mg PO Q6AM 04/02/19 Lisinopril [Prinivil 40 mg Tablet] 40 mg PO BID 04/02/19 Metformin HCl [Metformin HCl ER] 750 mg PO DAILY 04/02/19 History of Present Illiness History of Present Illness: PARKER LYNCH is a 83 year old male, He came to the emergency room for evaluation of erythema of the left forearm consistent with cellulitis, Osteomyelitis was suspected MRI of the left wrist without IV contrast was obtained, it showed old fracture deformity of the distal radius with foreshortening allowing 9 mm of positive ulnar variance. There is a complex tear of the triangular fibrocartilage complex and prominent distal radioulnar joint effusion. There is an old nonunited fracture of the ulnar styloid process. There is vague marrow edema in the nonunited fragment and adjacent distal ulna and soft tissue edema along the medial wrist but no cortical erosive changes identified.There is old erosive changes of the distal ulna but they are corticated. There is also marrow edema along the medial triquetrum at the level of the ligamentous attachment. There is bony remodeling of the scaphoid with narrowing of the radioscaphoid articulation and osteochondral lesion along the proximal and mid to distal aspect. There is moderate narrowing of the STT articulations.Patient with underlining comorbid conditions including type 2 diabetes mellitus, chronic kidney disease stage III Hospital Course Hospital Course: Patient was admitted for the management of cellulitis affecting the left upper extremity, he was treated with IV antibiotic empirically, Zosyn and vancomycin, the cellulitis was extensive involving the wrist up to the elbow. He also have deformity of the left wrist, MRI of the joint was done, it demonstrated Old fracture deformity of the distal radius with foreshortening. There was a complex tear of the triangular fibrocartilage complex, prominent distal radioulnar joint effusion. There is old non-united fracture of the ulnar styloid process. There is vague marrow edema in the nonunited fragment and adjacent distal ulna and soft tissue edema along the medial wrist but no cortical erosive changes are identified, He was seen in consultation by orthopedic outpatient follow-up evaluation recommended. Hospital course was complicated with pneumonia, the sputum culture grew Pseudomonas, sensitive to Zosyn.patient was already started on for his cellulitis. He also had left ankle acute gout arthropathy he received a dose of prednisone, the most recent blood work demonstrated leukocytosis most likely secondary to prednisone Physical Exam Vital Signs: Temp Pulse Resp BP Pulse Ox 97.5 F 72 18 184/63 H 96 04/09/19 17:15 04/09/19 17:15 04/09/19 17:15 04/09/19 17:15 04/09/19 17:15 Intake & Output 04/08/19 04/09/19 04/10/19 06:59 06:59 06:59 Intake Total 2940 4899 491 Output Total 1525 200 550 Balance 1415 4699 -59 Weight 53.2 kg 54.8 kg General appearance: PRESENT: no acute distress Eye exam: PRESENT: PERRLA Respiratory exam: PRESENT: clear to auscultation priscilla Cardiovascular exam: PRESENT: +S1, +S2 GI/Abdominal exam: PRESENT: soft Neurological exam: PRESENT: alert Results Laboratory Results: WBC 15.5 10^3/uL (4.0-10.5) H 04/09/19 17:16 RBC 3.58 10^6/uL (4.35-5.55) L 04/09/19 17:16 Hgb 9.4 g/dL (13.5-17.0) L 04/09/19 17:16 Hct 28.3 % (37.9-51.0) L 04/09/19 17:16 MCV 79 fl (80-97) L 04/09/19 17:16 MCH 26.4 pg (27.0-33.4) L 04/09/19 17:16 MCHC 33.3 g/dL (32.0-36.0) 04/09/19 17:16 RDW 18.0 % (11.5-14.0) H 04/09/19 17:16 Plt Count 367 10^3/uL (150-450) 04/09/19 17:16 Lymph % (Auto) Not Reportable 04/09/19 17:16 [place] % (Auto) Not Reportable 04/09/19 17:16 Eos % (Auto) Not Reportable 04/09/19 17:16 Baso % (Auto) Not Reportable 04/09/19 17:16 Absolute Neuts (auto) Not Reportable 04/09/19 17:16 Absolute Lymphs (auto) Not Reportable 04/09/19 17:16 Absolute Monos (auto) Not Reportable 04/09/19 17:16 Absolute Eos (auto) Not Reportable 04/09/19 17:16 Absolute Basos (auto) Not Reportable 04/09/19 17:16 Total Counted 100 04/09/19 17:16 Seg Neutrophils % Not Reportable 04/09/19 17:16 Seg Neuts % (Manual) 93 % (42-78) H 04/09/19 17:16 Lymphocytes % (Manual) 3 % (13-45) L 04/09/19 17:16 Monocytes % (Manual) 4 % (3-13) 04/09/19 17:16 Eosinophils % (Manual) 0 % (0-6) 04/09/19 17:16 Basophils % (Manual) 0 % (0-2) 04/09/19 17:16 Abs Neuts (Manual) 14.4 10^3/uL (1.7-8.2) H 04/09/19 17:16 Abs Lymphs (Manual) 0.5 10^3/uL (0.5-4.7) 04/09/19 17:16 Abs Monocytes (Manual) 0.6 10^3/uL (0.1-1.4) 04/09/19 17:16 Absolute Eos (Manual) 0.0 10^3/uL (0.0-0.6) 04/09/19 17:16 Abs Basophils (Manual) 0.0 10^3/uL (0.0-0.2) 04/09/19 17:16 Platelet Comment ADEQUATE 04/09/19 17:16 Hypochromasia SLIGHT 04/09/19 17:16 Anisocytosis 1+ 04/09/19 17:16 Microcytosis SLIGHT 04/09/19 17:16 ESR 109 mm/hr (0-20) H 04/07/19 15:35 PT 14.5 SEC (11.4-15.4) 04/02/19 20:56 INR 1.12 04/02/19 20:56 APTT 34.1 SEC (23.5-35.8) 04/02/19 20:56 Sodium 133.8 mmol/L (137-145) L 04/09/19 17:16 Potassium 3.6 mmol/L (3.6-5.0) 04/09/19 17:16 Chloride 100 mmol/L (98-107) 04/09/19 17:16 Carbon Dioxide 22 mmol/L (22-30) 04/09/19 17:16 Anion Gap 12 (5-19) 04/09/19 17:16 BUN 16 mg/dL (7-20) 04/09/19 17:16 Creatinine 1.41 mg/dL (0.52-1.25) H 04/09/19 17:16 Est GFR ( Amer) 58 (>60) L 04/09/19 17:16 Est GFR (MDRD) Non-Af 48 (>60) L 04/09/19 17:16 Glucose 132 mg/dL (75-110) H 04/09/19 17:16 POC Glucose 130 mg/dL (70-110) H 04/09/19 16:35 Hemoglobin A1c % 9.7 % (4.7-6.0) H 04/03/19 02:54 Uric Acid 1.8 mg/dL (3.5-8.5) L 04/07/19 15:35 Calcium 8.4 mg/dL (8.4-10.2) 04/09/19 17:16 Phosphorus 2.7 mg/dL (2.5-4.5) 04/02/19 20:56 Magnesium 2.0 mg/dL (1.6-2.3) 04/02/19 20:56 Total Bilirubin 0.4 mg/dL (0.2-1.3) 04/09/19 17:16 Direct Bilirubin 0.3 mg/dL (0.0-0.4) 04/09/19 17:16 Neonat Total Bilirubin Not Reportable 04/09/19 17:16 Neonat Direct Bilirubin Not Reportable 04/09/19 17:16 Neonat Indirect Bili Not Reportable 04/09/19 17:16 AST 87 U/L (17-59) H 04/09/19 17:16 ALT 57 U/L (<50) 04/09/19 17:16 Alkaline Phosphatase 124 U/L (38-126) 04/09/19 17:16 Ammonia < 8.7 umol/L (9-33) L 04/02/19 20:56 Creatine Kinase 56 U/L (55-170) 04/03/19 09:05 CK-MB (CK-2) 0.49 ng/mL (<4.55) 04/03/19 09:05 C-Reactive Protein 155.6 mg/L (<10.0) H 04/07/19 15:35 Total Protein 6.0 g/dL (6.3-8.2) L 04/09/19 17:16 Albumin 2.8 g/dL (3.5-5.0) L 04/09/19 17:16 Triglycerides 49 mg/dL (<150) 04/03/19 02:54 Cholesterol 94.55 mg/dL (0-200) 04/03/19 02:54 LDL Cholesterol Direct 45 mg/dL (<100) 04/03/19 02:54 VLDL Cholesterol 10.0 mg/dL (10-31) 04/03/19 02:54 HDL Cholesterol 46 mg/dL (>40) 04/03/19 02:54 Amylase 80 U/L (30-110) 04/02/19 20:56 Lipase 185.9 U/L (23-300) 04/02/19 20:56 TSH 3.83 uIU/mL (0.47-4.68) 04/02/19 20:56 Free T4 0.85 ng/dL (0.78-2.19) 04/02/19 20:56 Urine Color STRAW 04/03/19 00:01 Urine Appearance CLEAR 04/03/19 00:01 Urine pH 8.0 (5.0-9.0) 04/03/19 00:01 Ur Specific [place] 1.012 04/03/19 00:01 Urine Protein 30 mg/dL (NEGATIVE) H 04/03/19 00:01 Urine Glucose (UA) NEGATIVE mg/dL (NEGATIVE) 04/03/19 00:01 Urine Ketones NEGATIVE mg/dL (NEGATIVE) 04/03/19 00:01 Urine Blood MODERATE (NEGATIVE) H 04/03/19 00:01 Urine Nitrite NEGATIVE (NEGATIVE) 04/03/19 00:01 Urine Bilirubin NEGATIVE (NEGATIVE) 04/03/19 00:01 Urine Urobilinogen NEGATIVE mg/dL (<2.0) 04/03/19 00:01 Ur Leukocyte Esterase NEGATIVE (NEGATIVE) 04/03/19 00:01 Urine WBC (Auto) 0 /HPF 04/03/19 00:01 Urine RBC (Auto) 29 /HPF 04/03/19 00:01 Urine Bacteria (Auto) TRACE /HPF 04/03/19 00:01 Urine Mucus (Auto) RARE /LPF 04/03/19 00:01 Urine Creatinine 41.0 mg/dL (22-328) 04/05/19 14:00 Protein/Creatinin Ratio 1.1 mg/mg (0.0-0.2) H 04/05/19 14:00 Urine Total Protein 45.8 mg/dL (<12) H 04/05/19 14:00 Urine Ascorbic Acid NEGATIVE (NEGATIVE) 04/03/19 00:01 Time Trough Drawn 0938 04/08/19 09:38 Vancomycin Trough 8.2 ug/mL (5.0-20.0) 04/08/19 09:38 Urine Opiates Screen NEGATIVE 04/03/19 00:01 Urine Methadone Screen NEGATIVE 04/03/19 00:01 Ur Barbiturates Screen NEGATIVE 04/03/19 00:01 Ur Phencyclidine Scrn NEGATIVE 04/03/19 00:01 Ur Amphetamines Screen NEGATIVE 04/03/19 00:01 U Benzodiazepines Scrn NEGATIVE 04/03/19 00:01 Urine Cocaine Screen NEGATIVE 04/03/19 00:01 U Marijuana (THC) Screen NEGATIVE 04/03/19 00:01 Rheumatoid Factor NEGATIVE (NEGATIVE) 04/07/19 15:25 04/02/19 04/03/19 04/03/19 20:56 02:54 09:05 CK-MB (CK-2) 0.99 0.43 0.49 Impressions: Upper Extremity MRI 04/02/19 00:00 IMPRESSION: Old fracture deformities of the distal radius and ulna with prominent positive ulnar variance, dorsal intercalated segmental instability, and various arthropathies. There is a prominent distal radioulnar joint effusion. There is nonspecific soft tissue edema along the medial wrist. Vague marrow edema in the distal ulna is most likely due to adjacent chronic inflammatory changes. No definitive osteomyelitis is seen. Elbow X-Ray 04/02/19 12:08 IMPRESSION: 1. Olecranon bursitis. 2. Tiny curvilinear ossific density along the posterior margin of the olecranon may represent an acute avulsion injury or calcific tendinosis. 3. No acute fracture or dislocation. Wrist X-Ray 04/02/19 12:08 IMPRESSION: 1. Chronic degenerative/posttraumatic change of the distal radius and ulna with chronic ulnar minus variance and bony remodeling at the carpal bones. No evidence of acute fracture or dislocation. 2. Soft tissue swelling. Chest X-Ray 04/05/19 00:00 IMPRESSION: Interval reduction in lung volumes with development of bibasilar volume loss and possible small pleural effusions. This may represent pneumonia or mild edema. Lower Extremity MRI 04/07/19 00:00 IMPRESSION: 1. Small ankle joint effusion. Somewhat limited evaluation due to degree of motion. Within limits of the exam there is no evidence of bone marrow edema or fracture. No evidence of ligamentous injury. 2. Small foreign bodies in the dorsal and plantar soft tissues. Stroke Is this a Stroke Patient?: No Acute Heart Failure - Is this a Heart Failure Patient?: No
== END 2019-04-09 18:30 | disposition home or self-care (01) | DRG 602 ==
LOC: ER 11:50 → INTOOBSV 17:00 → EH 17:00 → INTOOBSV 18:13 → OBSVTOIN 18:13 → 5 20:18 → OBSVTOIN 04-06 11:11
PROVIDERS: ADMIT Internal Medicine; ATTEND Internal Medicine
DX: L03.114 Cellulitis of left upper limb (principal); J15.1 Pneumonia due to Pseudomonas; I48.19 Other persistent atrial fibrillation; E86.0 Dehydration; E11.22 Type 2 diabetes mellitus with diabetic chronic kidney disease; I12.9 Hypertensive chronic kidney disease with stage 1 through stage 4 chronic kidney disease, or unspecified chronic kidney disease; N18.3 Chronic kidney disease, stage 3 (moderate); M19.132 Post-traumatic osteoarthritis, left wrist; E11.42 Type 2 diabetes mellitus with diabetic polyneuropathy; I48.91 Unspecified atrial fibrillation; E78.5 Hyperlipidemia, unspecified; M10.072 Idiopathic gout, left ankle and foot; J44.9 Chronic obstructive pulmonary disease, unspecified; Z95.5 Presence of coronary angioplasty implant and graft; Z87.891 Personal history of nicotine dependence; Z79.02 Long term (current) use of antithrombotics/antiplatelets; Z79.84 Long term (current) use of oral hypoglycemic drugs; Z79.899 Other long term (current) drug therapy; Z82.49 Family history of ischemic heart disease and other diseases of the circulatory system; Z87.81 Personal history of (healed) traumatic fracture; D72.829 Elevated white blood cell count, unspecified; T38.0X5A Adverse effect of glucocorticoids and synthetic analogues, initial encounter
CPT/HCPCS: 36415; 71045; 80053; 80061; 80202; 80307; 81001; 82140; 82150; 82550; 82553; 82570; 82962; 83036; 83690; 83735; 84100; 84156; 84439; 84443; 84550; 85025; 85610; 85652; 85730; 86140; 86200; 86430; 87040; 87070; 87077; 87086; 87186; 87205; 96361; 96365; 99285; G0378; J1170; J1815; J2543; J3370; J3490; J7030; J7050; J7060; J7512

== ENCOUNTER 2019-04-11 11:14 | Emergency (ER) | payer OTHER, MEDICARE ==
--- NOTE | 2019-04-11 12:05 | ER Document Report ---
ED Extremity Problem, Lower - General Chief Complaint: Knee Pain Stated Complaint: KNEE PAIN Time Seen by Provider: 04/11/19 12:04 Primary Care Provider: TINA QUIROS MD [Primary Care Provider] - Follow up as needed Mode of Arrival: Wheelchair Information source: Patient Notes: 83-year-old male presented to ED for complaint of pain to both knees. He states he is continued to have pain in his left ankle. He did have an MRI of his left ankle on 07 April. It did show gout arthritis and some effusion. He is to follow-up with his primary doctor for that MRI. He is also can be treated with some Tylenol at this time. If there are no injuries he will be discharged home with instructions to follow-up with Becky by phone tomorrow to schedule follow-up appointments. TRAVEL OUTSIDE OF THE [place] IN LAST 30 DAYS: No - HPI Patient complains to provider of: Pain, Swelling Location: Knee Occurred: Other - 2 weeks Onset/Duration: Gradual Severity: Moderate Pain Level: 3 Recent injury: No Associated symptoms: Painful ambulation Exacerbated by: Movement, Walking Relieved by: Nothing - Related Data Allergies/Adverse Reactions: No Known Allergies Allergy (Verified 04/11/19 12:02) Past Medical History - General Information source: Patient - Social History Smoking Status: Former Smoker Frequency of alcohol use: None Drug Abuse: None Lives with: Family Family History: Hypertension, Other Patient has suicidal ideation: No Patient has homicidal ideation: No - Past Medical History Cardiac Medical History: Reports: Hx Atrial Fibrillation, Hx Hypercholesterolemia, Hx Hypertension Pulmonary Medical History: Reports: Hx COPD EENT Medical History: Reports: None Endocrine Medical History: Reports: Hx Diabetes Mellitus Type 2 Renal/ Medical History: Reports: Hx Renal Insufficiency Malignancy Medical History: Reports None GI Medical History: Reports: None Musculoskeletal Medical History: Reports Hx Arthritis, Reports Hx Gout Skin Medical History: Reports None Psychiatric Medical History: Reports: None Traumatic Medical History: Reports: None Infectious Medical History: Reports: None Past Surgical History: Reports: Hx Cardiac Catheterization - stent placed 2001, Hx Open Heart Surgery - STENT PLACED 2001, Hx Vascular Surgery - Bilateral endarterectomy - Immunizations Hx Diphtheria, Pertussis, Tetanus Vaccination: - unk Hx Pneumococcal Vaccination: 12/21/12 Review of Systems - Review of Systems Constitutional: No symptoms reported EENT: No symptoms reported Cardiovascular: No symptoms reported Respiratory: No symptoms reported Gastrointestinal: No symptoms reported Genitourinary: No symptoms reported Male Genitourinary: No symptoms reported Musculoskeletal: Joint pain - Pain swelling both knees, Joint swelling - Worse on the left Skin: No symptoms reported Hematologic/Lymphatic: No symptoms reported Neurological/Psychological: No symptoms reported -: Yes All other systems reviewed and negative Physical Exam - Vital signs Vitals: Temp Pulse Resp BP Pulse Ox 99.4 F 76 18 144/62 H 95 04/11/19 11:25 04/11/19 11:25 04/11/19 11:25 04/11/19 11:25 04/11/19 11:25 Interpretation: Normal - General General appearance: Appears well, Alert - HEENT Head: Normocephalic, Atraumatic Eyes: Normal Pupils: PERRL - Respiratory Respiratory status: No respiratory distress Chest status: Nontender Breath sounds: Normal Chest palpation: Normal - Cardiovascular Rhythm: Regular Heart sounds: Normal auscultation Murmur: No - Abdominal Inspection: Normal Distension: No distension Bowel sounds: Normal Tenderness: Nontender Organomegaly: No organomegaly - Back Back: Normal, Nontender - Extremities General upper extremity: Normal inspection, Nontender, Normal color, Normal ROM, Normal temperature General lower extremity: Normal color, Normal temperature, Normal weight bearing. No: Lamont's sign Knee: Tender, Joint effusion, Pain with ROM, Patellar tendon intact, Tender joint line, Unable to bear weight. No: Abrasion, Dislocation, Drawer's test instability, Ecchymosis, Instability, Laceration, Laxity with valgus stress, Laxity with varus stress, Popliteal fossa tender - Neurological Neuro grossly intact: Yes Cognition: Normal Orientation: AAOx4 Ana Coma Scale Eye Opening: Spontaneous Ana Coma Scale Verbal: Oriented Ana Coma Scale Motor: Obeys Commands [place] Coma Scale Total: 15 Speech: Normal Motor strength normal: LUE, RUE, LLE, RLE Sensory: Normal - Psychological Associated symptoms: Normal affect, Normal mood - Skin Skin Temperature: Warm Skin Moisture: Dry Skin Color: Normal Course - Re-evaluation Re-evalutation: 04/11/19 22:28 X-rays results were discussed with patient. Patient does have arthritis to the knees. Patient was encouraged to follow-up with his primary care and/or orthopedics. Plan discussed with patient and family and patient was discharged home. - Vital Signs Vital signs: Temp Pulse Resp BP Pulse Ox 98.7 F 74 20 151/63 H 100 04/11/19 13:18 04/11/19 13:18 04/11/19 13:18 04/11/19 13:28 04/11/19 13:18 - Diagnostic Test Radiology reviewed: Image reviewed, Reports reviewed Discharge - Discharge Clinical Impression: Arthritis Chronic knee pain Qualifiers: Laterality: bilateral Qualified Code(s): M25.561 - Pain in right knee Condition: Stable Disposition: HOME, SELF-CARE Additional Instructions: Chronic Pain Control Stress, inactivity, and depression make pain more severe regardless of the cause of the pain. Stress and poor physical condition can cause pain such as headaches and backache. Relaxation: Rest in a quiet place with your eyes closed for 20 minutes twice daily. Concentrate on a pleasant image, or simply "feel" your breathing. Clear your mind. Stress management: Deal with your "stressors." Either take action, or julien minate the stressor from your life. Don't let things hang over you. Accept those things you can't change. Nutrition: Eat small, balanced meals -- don't skip, don't overeat. Meals should be high-carbohydrate, low-sugar, low-fat. Exercise: Exercise helps painful conditions and eases stress. Get 30 minutes of moderate exercise, five days a week. Do an activity that does not flare your pain. Precautions: Pain which continues to disrupt daily activities, or which changes in nature, requires a medical evaluation. Pain Clinic referral is available. We do not manage chronic pain in the Emergency Department. We will try to appropriately help you through an acute flare of your chronic painful condition, but for on-going chronic pain that does not improve, you will need to see your private doctor or paint brush maker. We do not provide repeated medication management of chronic painful conditions. If you wish, we can provide the name of local pain management physicians. Arthritis Your symptoms are due to arthritis. Arthritis is an inflammation of the joints. There are many types -- osteoarthritis (due to "wear and tear"), auto- immmune arthritis (such as rheumatoid, lupus, Aisha's, and others), and crystal-induced arthritis (such as gout and pseudogout). The physician's examination, combined with laboratory tests, will determine the cause of your arthritis. All types of arthritis are treated with antiinflammatory medications. Other medication may be required for special types of arthritis, or if your problem does not respond to the antiinflammatory medicine. Local warmth may be helpful. Move the involved joints through the full range of motion daily. Mild exercise is usually still possible for most persons with arthritis (ask your physician). Swimming provides good exercise without damaging the joints. Contact the physician if you are worsening in any way. Acetaminophen Acetaminophen may be taken for pain relief or fever control. It's much safer than aspirin, offering a wider range of "safe" dosages. It is safe during . Some brand names are Tylenol, Panadol, Datril, Anacin 3, Tempra, and Liquiprin. Acetaminophen can be repeated every four hours. The following are maximum recommended dosages: WEIGHT Dose Drops Elixir Chewable(80mg) (LBS.) drprs=droppers tsp=teaspoon 6 40 mg .4 ml (1/2) 6-11 80 mg .8 ml (full) 1/2 tsp 1 tab 12-16 120 mg 1 1/2 drprs 3/4 tsp 1 1/2 tabs 17-23 160 mg 2 drprs 1 tsp 2 tabs 24-30 240 mg 3 drprs 1 1/2 tsp 3 tabs 30-35 320 mg 2 tsp 4 tabs 36-41 360 mg 2 1/4 tsp 4 1/2 tabs 42-47 400 mg 2 1/2 tsp 5 tabs 48-53 480 mg 3 tsp 6 tabs 54-59 520 mg 3 1/4 tsp 6 1/2 tabs 60-64 560 mg 3 1/2 tsp 7 tabs 65-70 600 mg 3 3/4 tsp 7 1/2 tabs 71-76 640 mg 4 tsp 8 tabs 77-82 720 mg 4 1/2 tsp 9 tabs 83-88 800 mg 5 tsp 10 tabs >89 pounds or adults 650 mg to 900 mg Acetaminophen can be repeated every four hours. Maximum daily dose not to exceed 4000 mg. These maximum recommended dosages are slightly higher than the dosages written on the product container, but these dosages are very safe and well below the toxic dosage for acetaminophen. FOLLOW-UP CARE: If you have been referred to a physician for follow-up care, call the physicians office for an appointment as you were instructed or within the next two days. If you experience worsening or a significant change in your symptoms, notify the physician immediately or return to the Emergency Department at any time for re-evaluation. Referrals: TINA QUIROS MD [Primary Care Provider] - Follow up as needed
[2019-04-11] MEDS ORDERED: ACETAMINOPHEN 325 MG TABLET PO ONE (12:08)
--- NOTE | 2019-04-11 12:55 | RADIOLOGY REPORT (SQ) ---
EXAM DESCRIPTION: KNEE LEFT 4 VIEW COMPLETED DATE/TIME: 04/11/2019 12:43 pm REASON FOR STUDY: pain in both knees COMPARISON: None. NUMBER OF VIEWS: Four views. TECHNIQUE: AP, lateral, and both oblique radiographic images acquired of the left knee. LIMITATIONS: None. FINDINGS: MINERALIZATION: Decreased. BONES: No acute fracture or dislocation. No worrisome bone lesions. Few tiny osteophytes. JOINT: No effusion. SOFT TISSUES: No soft tissue swelling. No radio-opaque foreign body. Vascular calcifications. OTHER: No other significant finding. IMPRESSION: No evidence of acute bony abnormality of the left knee. No significant degenerative change. TECHNICAL DOCUMENTATION: JOB ID: [id number] [employer]- All Rights Reserved Reading location - IP/workstation name: [email or web address]
--- NOTE | 2019-04-11 12:56 | RADIOLOGY REPORT (SQ) ---
EXAM DESCRIPTION: KNEE RIGHT 4 VIEWS COMPLETED DATE/TIME: 04/11/2019 12:43 pm REASON FOR STUDY: pain in both knees COMPARISON: None. NUMBER OF VIEWS: Four views. TECHNIQUE: AP, lateral, and both oblique radiographic images acquired of the right knee. LIMITATIONS: None. FINDINGS: MINERALIZATION: Decreased. BONES: No acute fracture or dislocation. No worrisome bone lesions. Few tiny osteophytes. JOINT: No effusion. SOFT TISSUES: No soft tissue swelling. No radio-opaque foreign body. Vascular calcifications. OTHER: No other significant finding. IMPRESSION: No evidence of acute bony abnormality of the right knee. No significant degenerative change. TECHNICAL DOCUMENTATION: JOB ID: [id number] [employer]- All Rights Reserved Reading location - IP/workstation name: [email or web address]
[2019-04-11 13:29] VITALS: BP 151/63
== END 2019-04-11 13:30 | disposition home or self-care (01) ==
LOC: ER 11:14
DX: M19.90 Unspecified osteoarthritis, unspecified site (principal); M25.561 Pain in right knee; M25.562 Pain in left knee; M25.572 Pain in left ankle and joints of left foot; M79.89 Other specified soft tissue disorders; Z87.891 Personal history of nicotine dependence; I48.91 Unspecified atrial fibrillation; I10 Essential (primary) hypertension; J44.9 Chronic obstructive pulmonary disease, unspecified; E11.9 Type 2 diabetes mellitus without complications
CPT/HCPCS: 99283

== ENCOUNTER → 2019-11-15 | Outpatient (CLI) | payer OTHER, MEDICARE ==
[2019-11-15 09:21] LABS: ABSOLUTE BASOPHILS # (AUTO) 0.1 10^3/uL (0.0-0.2); ABSOLUTE EOSINOPHILS # (AUTO) 0.2 10^3/uL (0.0-0.6); ABSOLUTE LYMPHOCYTES (AUTO) 0.8 10^3/uL (0.5-4.7); ABSOLUTE MONOCYTES (AUTO) 0.5 10^3/uL (0.1-1.4); BASOPHILS % (AUTO) 1.3 % (0-2); EOSINOPHILS % (AUTO) 2.9 % (0-6); HEMATOCRIT 37.8 % (37.9-51.0); HEMOGLOBIN 12.6 g/dL (13.5-17.0); LYMPHOCYTES % (AUTO) 14.4 % (13-45); MEAN CORPUSCULAR HEMOGLOBIN 27.9 pg (27.0-33.4); MEAN CORPUSCULAR HGB CONC 33.4 g/dL (32.0-36.0); MEAN CORPUSCULAR VOLUME 84 fl (80-97); MONOCYTES % (AUTO) 8.3 % (3-13); PLATELET COUNT 161 10^3/uL (150-450); RED BLOOD COUNT 4.51 10^6/uL (4.35-5.55); RED CELL DISTRIBUTION WIDTH 15.4 % (11.5-14.0); SEGMENTED NEUTROPHILS % (AUTO) 73.1 % (42-78); TOTAL CELLS COUNTED % (AUTO) 100 %; WHITE BLOOD COUNT 5.5 10^3/uL (4.0-10.5)
[2019-11-15 09:42] LABS: APPEARANCE,URINE SLIGHTLY-CLOUDY; BILIRUBIN,URINE NEGATIVE (NEGATIVE); COLOR,URINE YELLOW; GLUCOSE, URINE NEGATIVE (NEGATIVE); KETONES,URINE NEGATIVE (NEGATIVE); LEUKOCYTE ESTERASE,URINE NEGATIVE (NEGATIVE); NITRITE,URINE NEGATIVE (NEGATIVE); PROTEIN,URINE 100 mg/dL (NEGATIVE); URINE SPECIFIC GRAVITY 1.023; UROBILINOGEN,URINE NEGATIVE mg/dL (<2.0)
[2019-11-15 09:44] LABS: ADD MANUAL MICROSCOPIC YES
[2019-11-15 09:47] LABS: BACTERIA,URINE TRACE /HPF
[2019-11-15 09:49] LABS: ANION GAP 8 (5-19); BLOOD UREA NITROGEN 18 mg/dL (7-20); CALCIUM 8.8 mg/dL (8.4-10.2); CARBON DIOXIDE 25 mmol/L (22-30); CHLORIDE 104 mmol/L (98-107); GLUCOSE 197 mg/dL (75-110); PHOSPHORUS 3.8 mg/dL (2.5-4.5)
== END ==
LOC: OD 08:57
PROVIDERS: ATTEND Physician Assistant Medical
DX: E11.22 Type 2 diabetes mellitus with diabetic chronic kidney disease (principal); I12.9 Hypertensive chronic kidney disease with stage 1 through stage 4 chronic kidney disease, or unspecified chronic kidney disease; N18.3 Chronic kidney disease, stage 3 (moderate); D63.1 Anemia in chronic kidney disease
CPT/HCPCS: 36415; 80048; 81001; 83970; 84100; 85025